=== PATIENT | female | born 1985 | race Caucasian/White ===

== ENCOUNTER 2021-04-18 17:41 | Emergency (ER) | payer OTHER ==
--- NOTE | 2021-04-18 20:02 | RAD REPORT ---
EXAM DESCRIPTION: RAD - Knee Left 3 View - 04/18/2021 7:43 pm CLINICAL HISTORY: PAIN COMPARISON: No comparisons FINDINGS: Lateral plate and screw fixation of the proximal tibia. No evidence of hardware complicati ons. No acute fractures are identified. No significant knee effusion. IMPRESSION: No acute osseus abnormality involving the left knee.
[2021-04-18 20:48] LABS: Basophils % 0.4 % (0-1.3); Hematocrit 42.3 % (36.0-45.0); Lymphocytes % 27.4 % (15.3-44.8); RBC Red Blood Cell Count 4.62 M/uL (3.86-4.86)
[2021-04-18 21:08] LABS: BUN Blood Urea Nitrogen 10 mg/dL (7-18); Bicarbonate 26 mmol/L (21-32); C-Reactive Protein 4.75 mg/L (<3.00); Glucose Level 88 mg/dL (74-106); Potassium 3.6 mmol/L (3.5-5.1); Sodium Level 142 mmol/L (136-145); Uric Acid 4.6 mg/dL (2.6-6.0)
--- NOTE | 2021-04-18 21:24 | EDPHYS ---
Physician Documentation [facility] Name: Yadira Dykes Age: 35 yrs Sex: Female : 1985 Arrival Date: 04/18/2021 Time: 17:41 Bed DIS3 Private MD: ED Physician Antione Rodriguez HPI: 04/18 20:20 This 35 yrs old Female presents to ER via Ambulatory with complaints of Knee cp Pain. 20:20 Onset: The symptoms/episode began/occurred 3 day(s) ago. cp 20:20 The patient presents with pain, that is acute. The complaints affect the left knee. cp Context: resulted from an unknown cause, the patient can fully bear weight, the patient is able to ambulate, with mild difficulty, Problem is a result from a previous injury: Yes. fracture requiring hardware placement 7 years ago. 20:20 Associated signs and symptoms: Pertinent positives: swelling, warmth, Pertinent cp negatives calf tenderness, fever, rash, chills, sweats. Treatment prior to arrival includes: no previous treatment. HEALTH INFORMATION TECH: 18:52 LMP N/A - Hysterectomy kg Historical: - Allergies: 18:50 Phenergan; kg - Home Meds: 18:50 hydrochlorothiazide Oral for edema [Active]; kg - PSHx: 18:50 Right ankle sx; Left total knee; Tonsillectomy; Total abdominal hysterectomy; Adenoid kg excision; - Immunization history:: Adult Immunizations up to date, Client reports having NOT received the Covid vaccine. - Social history:: Smoking status: Patient denies any tobacco usage or history of. Patient uses street drugs, marijuana. ROS: 20:25 MS/extremity: Positive for pain, swelling, tenderness, of the left knee, Negative for cp injury or acute deformity, decreased range of motion, paresthesias. 20:25 Eyes: Negative for injury, pain, redness, and discharge. cp 20:25 Constitutional: Negative for body aches, chills, fever, poor PO intake. 20:25 Cardiovascular: Negative for chest pain, edema, palpitations. 20:25 Respiratory: Negative for cough, shortness of breath, wheezing. 20:25 Skin: Negative for rash. Exam: 20:30 Constitutional: The patient appears in no acute distress, alert, awake, non-toxic, well cp developed, well nourished. 20:30 Head/Face: Normocephalic, atraumatic. cp 20:30 Eyes: Periorbital structures: appear normal, Conjunctiva: normal, no exudate, no injection, Sclera: no appreciated abnormality, Lids and lashes: appear normal, bilaterally. 20:30 ENT: External ear(s): are unremarkable, Nose: is normal, Mouth: Lips: moist, Oral mucosa: moist, Posterior pharynx: Airway: no evidence of obstruction, patent. 20:30 Chest/axilla: Inspection: normal. 20:30 Cardiovascular: Rate: normal, Edema: is not appreciated. 20:30 Respiratory: the patient does not display signs of respiratory distress, Respirations: normal, no use of accessory muscles, no retractions, labored breathing, is not present. 20:30 Musculoskeletal/extremity: Extremities: grossly normal except: noted in the anterior lateral left knee: pain, swelling, tenderness, There is no evidence of erythema, no joint line tenderness noted, ROM: full active range of motion, in the left knee, Perfusion: the extremity is normally perfused throughout, Sensation intact. DVT Exam: no pain, no swelling, negative Homans' sign noted on exam, no erythema. Vital Signs: 18:47 BP 138 / 96; Pulse 73; Resp 20; Temp 98.0(TE); Pulse Ox 100% on R/A; Weight 83.91 kg; kg Height 5 ft. 5 in. (165.10 cm) (R); Pain 4/10; 22:10 BP 136 / 85; Pulse 73; Pulse Ox 100% on R/A; dh4 18:47 Body Mass Index 30.79 (83.91 kg, 165.10 cm) kg MDM: 19:58 Patient medically screened. cp 21:00 Differential diagnosis: less likely septic joint, cellulitis, bursitis, gout. cp 21:21 Data reviewed: vital signs, nurses notes, lab test result(s), radiologic studies, plain cp films. Test interpretation: by ED physician or midlevel provider: plain radiologic studies. Counseling: I had a detailed discussion with the patient and/or guardian regarding: the historical points, exam findings, and any diagnostic results supporting the discharge/admit diagnosis, lab results, radiology results, the need for outpatient follow up, a orthopedic surgeon, to return to the emergency department if symptoms worsen or persist or if there are any questions or concerns that arise at home. 04/18 20:13 Order name: CBC with Diff; Complete Time: 21:09 cp 04/18 20:13 Order name: BMP; Complete Time: 21:09 cp 04/18 21:09 Interpretation: Normal except: CL 112. cp 04/18 18:53 Order name: XRAY Knee LEFT 3 view; Complete Time: 20:12 kg 04/18 20:13 Order name: CRP; Complete Time: 21:09 cp 04/18 21:09 Interpretation: Abnormal: C-REACTIVE PROT 4.75. cp 04/18 20:13 Order name: Sed Rate; Complete Time: 21:09 cp 04/18 21:13 Interpretation: Within normal limits: SED 8. cp 04/18 20:15 Order name: Uric Acid; Complete Time: 21:09 cp 04/18 21:13 Interpretation: Within normal limits: URIC 4.6. cp 04/18 20:13 Order name: IV; Complete Time: 20:50 cp 04/18 21:18 Order name: Dustin wrap-joint: left knee; Complete Time: 21:23 cp 04/18 21:18 Order name: Crutches; Complete Time: 21:23 cp Administered Medications: 21:15 Drug: NS 0.9% 1000 ml Route: IV; Rate: 1 bolus; Site: right antecubital; kg 22:06 Follow up: IV Status: Completed infusion; IV Intake: 1000ml bb 21:20 Drug: Ketorolac 15 mg Route: IVP; Site: right antecubital; kg 22:06 Follow up: Response: No adverse reaction bb Disposition: 04/19 07:08 Co-signature as Attending Physician, Antione Rodriguez MD. [email or web address] Disposition Summary: 04/18/21 21:24 Discharge Ordered Location: Home cp Problem: new cp Symptoms: have improved cp Condition: Stable cp Diagnosis - Pain in left knee cp Followup: cp - With: Timothy Castillo MD - When: 2 - 3 days - Reason: Recheck today's complaints Discharge Instructions: - Discharge Summary Sheet cp - Elastic Bandage and RICE Therapy cp - Acute Knee Pain, Adult cp - Form - Excuse from Work, School, or Physical Activity cp Forms: - Work release form bb - Medication Reconciliation Form cp - Thank You Letter cp - Antibiotic Education cp - Prescription Opioid Use cp Prescriptions: - Diclofenac Sodium 75 mg Oral tablet,delayed release (DR/EC) - take 1 tablet by ORAL route 2 times per day; 20 tablet; Refills: 0, Product cp Selection Permitted Signatures: Dispatcher [employer] EDRodney Amador PA PA cp Holmes, Maurice, MD MD [email or web address] Ritu Wilson RN RN kg Jaylyn Acosta RN bb Corrections: (The following items were deleted from the chart) 04/18 18:52 18:50 Allergies: No Known Allergies; kg kg
--- NOTE | 2021-04-18 21:24 | ER ---
Nurse's Notes [facility] Name: Yadira Dykes Age: 35 yrs Sex: Female : 1985 Arrival Date: 04/18/2021 Time: 17:41 Bed DIS3 Private MD: Diagnosis: Pain in left knee Presentation: 04/18 18:47 Chief complaint: Patient states: Left knee pain, swelling, and warm to touch starting kg 04/15. Pt stated she had a left total knee replacement 7 yrs ago but hasnt ever had any problems with it. Pt denies any fall or trauma to knee. Coronavirus screen: Client denies travel out of the [place] in the last 14 days. At this time, unable to obtain information related to travel outside the [place] Ebola Screen: Patient negative for fever greater than or equal to 101.5 degrees Fahrenheit, and additional compatible Ebola Virus Disease symptoms Patient denies exposure to infectious person. Patient denies travel to an Ebola-affected area in the 21 days before illness onset. Initial Sepsis Screen: Does the patient meet any 2 criteria? No. Patient's initial sepsis screen is negative. Does the patient have a suspected source of infection? No. Patient's initial sepsis screen is negative. Risk Assessment: Do you want to hurt yourself or someone else? Patient reports no desire to harm self or others. Onset of symptoms was April 15, 2021. 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 - Social history:: Smoking status: Patient denies any tobacco usage or history of. Patient uses street drugs, marijuana. Screenin:00 Abuse screen: Denies threats or abuse. Nutritional screening: No deficits noted. bb Tuberculosis screening: No symptoms or risk factors identified. Fall Risk None identified. Assessment: 20:00 General: Appears in no apparent distress. uncomfortable, Behavior is calm, cooperative. bb Pain: Complains of pain in left knee. Neuro: Level of Consciousness is awake, alert, obeys commands, Oriented to person, place, time, situation. Cardiovascular: Capillary refill < 3 seconds Patient's skin is warm and dry. Respiratory: Respiratory effort is even, unlabored, Respiratory pattern is regular. GI: No signs and/or symptoms were reported involving the gastrointestinal system. Derm: Skin is pink, warm \T\ dry. Musculoskeletal: Circulation, motion, and sensation intact. Reports pain in left knee. 22:24 Reassessment: Patient is alert, oriented x 3, equal unlabored respirations, skin bb warm/dry/pink. pt demonstrated good crutch walking technique states she has used them in the past. Pt verbalized understanding of and agrees to plan of care discharge instructions given pt assisted to exit via wheelchair by this RN. Vital Signs: 18:47 BP 138 / 96; Pulse 73; Resp 20; Temp 98.0(TE); Pulse Ox 100% on R/A; Weight 83.91 kg; kg Height 5 ft. 5 in. (165.10 cm) (R); Pain 4/10; 22:10 BP 136 / 85; Pulse 73; Pulse Ox 100% on R/A; dh4 18:47 Body Mass Index 30.79 (83.91 kg, 165.10 cm) kg ED Course: 17:41 Patient arrived in ED. am2 18:50 Triage completed. kg 18:52 Arm band placed on left wrist. kg 19:43 XRAY Knee LEFT 3 view In Process Unspecified. EDMS 19:58 Rodney Celeste PA is PHCP. cp 19:58 Antione Rodriguez MD is Attending Physician. cp 20:00 Patient has correct armband on for positive identification. bb 20:00 No provider procedures requiring assistance completed. bb 20:38 Initial lab(s) drawn, by me, sent to lab. Inserted saline lock: 20 gauge in right jp3 antecubital area, using aseptic technique. Blood collected. 21:23 Timothy Castillo MD is Referral Physician. cp 22:06 IV discontinued, intact, bleeding controlled, No redness/swelling at site. Pressure bb dressing applied. Administered Medications: 21:15 Drug: NS 0.9% 1000 ml Route: IV; Rate: 1 bolus; Site: right antecubital; kg 22:06 Follow up: IV Status: Completed infusion; IV Intake: 1000ml bb 21:20 Drug: Ketorolac 15 mg Route: IVP; Site: right antecubital; kg 22:06 Follow up: Response: No adverse reaction bb Intake: 22:06 IV: 1000ml; Total: 1000ml. bb Outcome: 21:24 Discharge ordered by MD. cp 22:27 Discharged to home via wheelchair, with crutches. bb 22:27 Condition: stable 22:27 Discharge instructions given to patient, Instructed on discharge instructions, follow up and referral plans. medication usage, Demonstrated understanding of instructions, follow-up care, medications, crutch walking, Prescriptions given X 1. 22:28 Patient left the ED. bb Signatures: Dispatcher [employer] EDMS Jaylyn Acosta, RN RN bb Rodney Celeste PA PA cp Moreno, Amanda am2 Karthikeyan Cardona 3 Donald Bernstein 4 Ritu Wilson RN RN kg Corrections: (The following items were deleted from the chart) 18:52 18:50 Allergies: No Known Allergies; kg kg
[2021-04-18] MEDS ORDERED: KETOROLAC 30 MG/ML INJ ONE (21:39)
[2021-04-18] MEDS ORDERED: NA CHLORIDE 0.9% 1,000 ML ONE (21:39)
[2021-04-18 22:55] VITALS: TEMP 98; O2SAT 100
[2021-04-18 22:56] VITALS: BP 136/85
== END 2021-04-18 22:28 | disposition home or self-care (01) ==
LOC: ER 17:41
DX: M25.562 Pain in left knee (principal); Z88.8 Allergy status to other drugs, medicaments and biological substances
CPT/HCPCS: 96361; 85025; 80048; 36415; 84550; 85652; 86140; 73562; 96374; 99284; J7030

== ENCOUNTER 2021-05-31 08:12 | Emergency (ER) | payer OTHER ==
[2021-05-31] MEDS ORDERED: MORPHINE 4 MG/ML SYR ONE ×2 (09:06→09:19)
[2021-05-31] MEDS ORDERED: ONDANSETRON 4 MG/2 ML VIAL ONE ×2 (09:06→09:08)
--- NOTE | 2021-05-31 09:59 | RAD REPORT ---
EXAM DESCRIPTION: RAD - Ankle Left 3 View - 05/31/2021 9:44 am CLINICAL HISTORY: DEFORMITY, ankle trauma COMPARISON: No comparisons FINDINGS: A punctate 6-7 mm avulsed fracture fragment is present from the tip of the fibula. There i s significant lateral soft tissue swelling. Distal tibia is intact. No joint effusion seen. No joint space narrowing. No soft tissue abnormality. No plantar spur. IMPRESSION: Small acute fracture present at the tip of the fibula with significant adjacent soft tis mei swelling.
--- NOTE | 2021-05-31 10:29 | EDPHYS ---
Physician Documentation [facility] Name: Yadira Dykes Age: 35 yrs Sex: Female : 1985 Arrival Date: 05/31/2021 Time: 08:12 Bed 5 Private MD: ED Physician Rodney Jackson HPI: 05/31 08:40 This 35 yrs old Female presents to ER via Wheelchair with complaints of Ankle jmm Injury. 08:40 The patient presents with an injury, pain. Onset: The symptoms/episode began/occurred jmm acutely, just prior to arrival. Associated signs and symptoms: Pertinent positives: swelling, Pertinent negatives: nausea. Modifying factors: The symptoms are alleviated by nothing, the symptoms are aggravated by weight bearing, movement. The patient has not experienced similar symptoms in the past. This is a 35 year old with no chronic medical conditions that present to the ED with complaints of left ankle pain, patient stepped in a hole and states she felt a crunch. . 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 - Social history:: Smoking status: Patient denies any tobacco usage or history of. ROS: 08:40 Constitutional: Negative for fever, chills, and weight loss, Cardiovascular: Negative jmm for chest pain, palpitations, and edema, Respiratory: Negative for shortness of breath, cough, wheezing, and pleuritic chest pain. 08:40 MS/extremity: Positive for deformity, pain. 08:40 All other systems are negative. Exam: 08:40 Constitutional: This is a well developed, well nourished patient who is awake, alert, jmm and in no acute distress. Head/Face: atraumatic. Eyes: EOMI, no conjunctival erythema appreciated ENT: Moist Mucus Membranes Neck: Trachea midline, Supple Chest/axilla: Normal chest wall appearance and motion. Cardiovascular: Regular rate and rhythm. No edema appreciated Respiratory: Normal respirations, no respiratory distress appreciated Abdomen/GI: Non distended, soft Back: Normal ROM Skin: General appearance color normal 08:40 Musculoskeletal/extremity: Pain noted to the left ankle with a deformity, compartments are soft, full dorsalis pulse appreciated, sensation intact, neurovascular intact. 08:40 Skin: Appearance: Color: normal in color. 08:40 Neuro: Motor: is normal. 08:40 Psych: Behavior/mood is pleasant, cooperative. Vital Signs: 08:21 BP 132 / 87; Pulse 81; Resp 17; Temp 97.9; Pulse Ox 100% ; Weight 81.65 kg; Height 5 jl7 ft. 6 in. (167.64 cm); Pain 8/10; 08:50 BP 132 / 92; Pulse 85; Resp 14; Pulse Ox 97% on R/A; Pain 5/10; tw5 09:54 BP 124 / 84; Pulse 81; Resp 14; Pulse Ox 99% on R/A; Pain 2/10; tw5 11:29 BP 116 / 79; Pulse 84; Resp 14; Temp 98.1; Pulse Ox 97% on R/A; Pain 2/10; tw5 08:21 Body Mass Index 29.05 (81.65 kg, 167.64 cm) jl7 Procedures: 10:26 Splinting: Splint applied to left leg using Orthoglass splint, applied by nurse. audrey Examined by me, post splint application: neurovascular intact, 2+ distal pulses palpable, brisk capillary refill noted, Patient tolerated well. MDM: 08:27 Patient medically screened. [facility] 10:26 Data reviewed: vital signs, nurses notes, radiologic studies. Counseling: I had a audrey detailed discussion with the patient and/or guardian regarding: the historical points, exam findings, and any diagnostic results supporting the discharge/admit diagnosis, radiology results, the need for outpatient follow up, to return to the emergency department if symptoms worsen or persist or if there are any questions or concerns that arise at home. ED course: X-ray revealed a distal patient encouraged to follow-up with orthopedics for further evaluation bear weight until cleared by orthopedics. Patient understood and agrees plan of care.. 05/31 09:01 Order name: Ankle Left 3 View XRAY; Complete Time: 10:08 jmcj 05/31 08:27 Order name: Saline Lock; Complete Time: 08:46 [facility] 05/31 09:53 Order name: Posterior Orthoglass Ankle Splint: with stirrup; Complete Time: 10:28 [facility] Administered Medications: 08:48 Drug: morphine 4 mg Route: IVP; Site: right antecubital; tw5 09:55 Follow up: Response: No adverse reaction; Pain is decreased; RASS: Alert and Calm (0) tw5 08:58 Drug: Zofran (Ondansetron) 4 mg Route: IVP; Site: right antecubital; tw5 09:55 Follow up: Response: No adverse reaction tw5 08:58 Not Given (wasted down patients arm ): morphine 4 mg IVP once; RASS on ADMIN: Combtv4, tw5 Very Agttd3, Agttd2, Rstlss1, AlertClm0, Drwsy-1, Lt Sdtn-2, Mod Sdtn-3, Dp Sdtn-4, UnArsble-5 11:27 Drug: fentaNYL (PF) 25 mcg Route: IVP; Site: right antecubital; tw5 11:29 Follow up: Response: No adverse reaction; Pain is decreased; RASS: Alert and Calm (0) tw5 Disposition: 06/01 07:52 Co-signature as Attending Physician, Rodney Jackson MD I agree with the assessment and desi plan of care. Disposition Summary: 05/31/21 10:28 Discharge Ordered Location: Home [facility] Condition: Stable [facility] Diagnosis - Distal Fibular Fracture [facility] Followup: [facility] - With: Private Physician - When: 2 - 3 days - Reason: Recheck today's complaints, Continuance of care, Re-evaluation by your physician Followup: [facility] - With: Jarrod Myers MD - When: 2 - 3 days - Reason: Recheck today's complaints, Continuance of care, Re-evaluation by your physician Discharge Instructions: - Discharge Summary Sheet [facility] - Ankle Fracture [facility] Forms: - Medication Reconciliation Form [facility] - Thank You Letter [facility] - Antibiotic Education [facility] - Prescription Opioid Use [facility] Prescriptions: - Ibuprofen 800 mg Oral Tablet - take 1 tablet by ORAL route every 8 hours As needed take with food; 30 tablet; [facility] Refills: 0, Product Selection Permitted Signatures: Dispatcher [employer] EDRodney Prather MD MD cha Mickail, Joel, PA PA jmm Leal, Jahala, VANI RN [email or web address] Cassie [email or web address] Corrections: (The following items were deleted from the chart) 05/31 11:11 11:00 Social Service Consult ordered. EDMS EDMS
--- NOTE | 2021-05-31 10:29 | ER ---
Nurse's Notes [facility] Name: Yadira Dykes Age: 35 yrs Sex: Female : 1985 Arrival Date: 05/31/2021 Time: 08:12 Bed 5 Private MD: Diagnosis: Distal Fibular Fracture Presentation: 05/31 08:21 Chief complaint: Patient states: Stepped in a hole with left foot this morning, heard jl7 crunching, swelling noted to left ankle. Coronavirus screen: At this time, the client does not indicate any symptoms associated with coronavirus-19. Ebola Screen: No symptoms or risks identified at this time. Initial Sepsis Screen: Does the patient meet any 2 criteria? No. Patient's initial sepsis screen is negative. Does the patient have a suspected source of infection? No. Patient's initial sepsis screen is negative. Risk Assessment: Do you want to hurt yourself or someone else? Patient reports no desire to harm self or others. Onset of symptoms was May 31, 2021. 08:21 Method Of Arrival: Wheelchair jl7 08:21 Acuity: CONNIE 4 jl7 Triage Assessment: 08:22 General: Appears in no apparent distress. uncomfortable, Behavior is calm, cooperative, jl7 appropriate for age, crying. Pain: Complains of pain in left lateral ankle Pain currently is 8 out of 10 on a pain scale. Musculoskeletal: Swelling present in left lateral ankle. 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 - Social history:: Smoking status: Patient denies any tobacco usage or history of. Screenin:50 Abuse screen: Denies threats or abuse. Denies injuries from another. Nutritional tw5 screening: No deficits noted. Tuberculosis screening: No symptoms or risk factors identified. Fall Risk Fall in past 12 months (25 points). IV access (20 points). Assessment: 08:50 General: Appears uncomfortable, Behavior is crying, Reports " I was walking my daughter tw5 to school when my foot went into a hole and I twisted my ankle.". Pain: Pain currently is 6 out of 10 on a pain scale. 08:50 Cardiovascular: No deficits noted. Cardiovascular: Pulses are 2+ in left dorsalis pedis tw5 artery. Respiratory: No deficits noted. Musculoskeletal: Circulation, motion, and sensation intact. Capillary refill < 3 seconds, is brisk, in left in bilateral toes. Swelling present in left lateral ankle. 09:55 Reassessment: Patient states feeling better. Patient states symptoms have improved. tw5 General: Appears uncomfortable, Behavior is calm, crying. 11:37 Reassessment: Patient states feeling better. Patient states symptoms have improved. tw5 Vital Signs: 08:21 BP 132 / 87; Pulse 81; Resp 17; Temp 97.9; Pulse Ox 100% ; Weight 81.65 kg; Height 5 jl7 ft. 6 in. (167.64 cm); Pain 8/10; 08:50 BP 132 / 92; Pulse 85; Resp 14; Pulse Ox 97% on R/A; Pain 5/10; tw5 09:54 BP 124 / 84; Pulse 81; Resp 14; Pulse Ox 99% on R/A; Pain 2/10; tw5 11:29 BP 116 / 79; Pulse 84; Resp 14; Temp 98.1; Pulse Ox 97% on R/A; Pain 2/10; tw5 08:21 Body Mass Index 29.05 (81.65 kg, 167.64 cm) jl7 ED Course: 08:12 Patient arrived in ED. am2 08:13 Anthony Kellogg PA is PHCP. jmm 08:14 Rodney Jackson MD is Attending Physician. jmm 08:22 Triage completed. jl7 08:22 Arm band placed on right wrist. jl7 08:36 Cassie Parker is Primary Nurse. tw5 08:46 Inserted saline lock: 20 gauge in right antecubital area, using aseptic technique. cs9 08:50 Resting quietly. Appears tearful. Awaiting for x-ray. tw5 08:50 Patient has correct armband on for positive identification. Bed in low position. Call tw5 light in reach. Side rails up X 1. Pulse ox on. NIBP on. Door closed. Noise minimized. Lights dimmed. Ice pack to injury. Verbal reassurance given. 08:50 No provider procedures requiring assistance completed. tw5 09:44 Ankle Left 3 View XRAY In Process Unspecified. EDMS 10:29 Crutch training done. Orthoglass splint: Posterior short lleg splint applied on left em1 leg. stirrup splint applied on left leg. 10:33 Jarrod Myers MD is Referral Physician. [facility] 11:37 IV discontinued, intact, bleeding controlled, No redness/swelling at site. Pressure tw5 dressing applied. Administered Medications: 08:48 Drug: morphine 4 mg Route: IVP; Site: right antecubital; tw5 09:55 Follow up: Response: No adverse reaction; Pain is decreased; RASS: Alert and Calm (0) tw5 08:58 Drug: Zofran (Ondansetron) 4 mg Route: IVP; Site: right antecubital; tw5 09:55 Follow up: Response: No adverse reaction tw5 08:58 Not Given (wasted down patients arm ): morphine 4 mg IVP once; RASS on ADMIN: Combtv4, tw5 Very Agttd3, Agttd2, Rstlss1, AlertClm0, Drwsy-1, Lt Sdtn-2, Mod Sdtn-3, Dp Sdtn-4, UnArsble-5 11:27 Drug: fentaNYL (PF) 25 mcg Route: IVP; Site: right antecubital; tw5 11:29 Follow up: Response: No adverse reaction; Pain is decreased; RASS: Alert and Calm (0) tw5 Outcome: 10:28 Discharge ordered by . cj 11:37 Discharged to home Via Bus tw5 11:37 Condition: good 11:37 Discharge instructions given to patient, Instructed on discharge instructions, follow up and referral plans. medication usage, crutch walking, Demonstrated understanding of instructions, medications, crutch walking, Prescriptions given X 1. 11:39 Patient left the ED. tw5 Signatures: Dispatcher [employer] EDMS Anthony Kellogg PA PA jmm Martinez, Eric em1 Thu Kent RN RN aa5 Vianney Sarah RN RN jl7 Elyse Lin am2 Cassie Parker tw5 Marilee Mai cs9 Corrections: (The following items were deleted from the chart) 08:29 Thu Kent RN is Primary Nurse. aa5 08:36 Primary Nurse role handed off by Thu Kent, VANI tw5 :56 09:54 BP 124 / 84; Pulse 81bpm; Resp 14bpm; Pulse Ox 99% RA; 5
[2021-05-31] MEDS ORDERED: FENTANYL CITR 100 MCG/2 ML ONE (11:43)
[2021-05-31 12:04] VITALS: BP 116/79; TEMP 98.1; O2SAT 97
== END 2021-05-31 11:39 | disposition home or self-care (01) ==
LOC: ER 08:12
PROC: 2W3RX1Z Immobilization of Left Lower Leg using Splint (ICD-10-PCS; principal; 2021-05-31)
DX: S82.832A Other fracture of upper and lower end of left fibula, initial encounter for closed fracture (principal); X58.XXXA Exposure to other specified factors, initial encounter; Y93.01 Activity, walking, marching and hiking; Z88.8 Allergy status to other drugs, medicaments and biological substances
CPT/HCPCS: 73610; 96375; 96374; 99284; 29515; J3010; J2405 ×2

== ENCOUNTER 2021-06-06 21:21 | Emergency (ER) | payer OTHER ==
[2021-06-06] MEDS ORDERED: HYDROCODONE/APAP 10/325 TAB ONE (22:24)
--- NOTE | 2021-06-06 23:24 | ER ---
Nurse's Notes [facility] Name: Yadira Dykes Age: 35 yrs Sex: Female : 1985 Arrival Date: 06/06/2021 Time: 21:23 Bed 14 Private MD: Diagnosis: Avulsion fracture left fibula;Cellulitis of left lower limb Presentation: 06/06 21:34 Chief complaint: Patient states: leg pain. Coronavirus screen: Vaccine status: Patient ss reports being unvaccinated. The client reports previous COVID testing was negative. Date of collection: October 2020. Ebola Screen: Patient negative for fever greater than or equal to 101.5 degrees Fahrenheit, and additional compatible Ebola Virus Disease symptoms Patient denies exposure to infectious person. Patient denies travel to an Ebola-affected area in the 21 days before illness onset. Initial Sepsis Screen: Does the patient meet any 2 criteria? No. Patient's initial sepsis screen is negative. Does the patient have a suspected source of infection? No. Patient's initial sepsis screen is negative. Risk Assessment: Do you want to hurt yourself or someone else? Patient reports no desire to harm self or others. Onset of symptoms was May 30, 2021. 21:34 Method Of Arrival: Wheelchair ss 21:34 Acuity: CONNIE 3 ss Triage Assessment: 22:00 General: Appears in no apparent distress. uncomfortable, well groomed, well developed, bs2 well nourished, Behavior is calm, cooperative, appropriate for age. Injury Description: Avulsion sustained to left leg. Historical: - Allergies: 21:36 Phenergan; ss - Home Meds: 21:36 Hydrochlorothiazide Oral for EDEMA [Active]; ss - PMHx: 21:36 None; ss - PSHx: 21:36 Total abdominal hysterectomy; Tonsillectomy; right ankle sx; Left total knee; Adenoid ss excision; - Immunization history:: Adult Immunizations up to date, Client reports having NOT received the Covid vaccine. - Social history:: Smoking status: Patient denies any tobacco usage or history of. Screenin:00 Abuse screen: Denies threats or abuse. Denies injuries from another. Nutritional bs2 screening: No deficits noted. Tuberculosis screening: No symptoms or risk factors identified. Fall Risk None identified. Assessment: 22:00 General: Appears in no apparent distress. uncomfortable, well groomed, well developed, bs2 well nourished, Behavior is calm, cooperative, appropriate for age. Pain: Complains of pain in left lateral ankle and left leg Pain currently is 8 out of 10 on a pain scale. Pain began 2-3 days ago. Musculoskeletal: Reports pain in left lateral ankle and left leg pt was in ER a week ago and placed in orthoglass splint, pt has been unable to follow up with orthopedics and pain is getting worse. LT side of ankle is red and swollen, foot is swollen . Vital Signs: 21:34 BP 135 / 103; Pulse 85; Resp 18; Temp 98.0; Pulse Ox 100% on R/A; Weight 83.91 kg; ss Height 5 ft. 6 in. (167.64 cm); Pain 10; 06/07 00:00 BP 125 / 92; Pulse 85; Resp 15; Temp 98.6(O); Pulse Ox 100% on R/A; Pain 5/10; bs2 06/06 21:34 Body Mass Index 29.86 (83.91 kg, 167.64 cm) ED Course: 06/06 21:23 Patient arrived in ED. bp1 21:30 Luiza Jorgensen FNP-C is PHCP. kb 21:30 Rodney Jackson MD is Attending Physician. kb 21:36 Triage completed. ss 21:56 Emily Chapman, RN is Primary Nurse. bs2 22:00 Patient has correct armband on for positive identification. Bed in low position. Call bs2 light in reach. Side rails up X 1. Warm blanket given. 06/07 00:00 Splint/sling/ice applied as appropriate. bs2 00:00 Assist provider with fracture care of left leg Obvious deformity is not noted. bs2 Circulation, motor and sensation is intact. Immobilized with replaced old saddle splint with short posterior splint, no reduction required. . Post immobilization, circulation, motor and sensation remain intact. Patient tolerated well. Patient did not have IV access during this emergency room visit. Administered Medications: 06/06 22:05 Drug: [place] (HYDROcodone-acetaminophen) 10 mg-325 mg 1 tabs Route: PO; bs2 23:42 Follow up: Response: No adverse reaction bs2 23:58 Drug: Ketorolac 30 mg Route: IM; Site: left deltoid; bs2 06/07 00:51 Follow up: Response: No adverse reaction bs2 Outcome: 06/06 23:23 Discharge ordered by . biju 06/07 00:25 Discharge instructions given to patient, Instructed on discharge instructions, follow bs2 up and referral plans. medication usage, Demonstrated understanding of instructions, follow-up care, medications, splint care, Prescriptions given X 1. 00:56 Discharged to home via wheelchair, with family. bs2 00:56 Condition: improved 00:57 Patient left the ED. bs2 Signatures: Luiza Jorgensen, LAUREENC JJ-Betty Felix RN RN Chaya Cuadra Bridget, RN RN bs2 Corrections: (The following items were deleted from the chart) 06/06 23:41 20:05 Melrude (HYDROcodone-acetaminophen) 10 mg-325 mg 1 tabs PO bs2 bs2
--- NOTE | 2021-06-06 23:24 | EDPHYS ---
Physician Documentation [facility] Name: Yadira Dykes Age: 35 yrs Sex: Female : 1985 Arrival Date: 06/06/2021 Time: 21:23 Bed 14 Private MD: JARRED Physician Rodney Jackson HPI: 06/07 00:16 This 35 yrs old Female presents to ER via Wheelchair with complaints of Leg kb Injury, Ankle Injury. 00:16 The patient presents with an injury, pain, swelling, tenderness. The complaints affect kb the left lateral ankle. Context: the patient is not able to bear weight, using wheelchair. Onset: The symptoms/episode began/occurred last week. Modifying factors: The symptoms are alleviated by nothing. the symptoms are aggravated by movement, weight bearing. Associated signs and symptoms: Pertinent positives: swelling. Treatment prior to arrival includes: splinting the affected extremity. Severity of symptoms: At their worst the symptoms were moderate, in the emergency department the symptoms are unchanged. The patient has not experienced similar symptoms in the past. The patient has been recently seen at the [facility] Emergency Department. Pt reports she broke her fibula last week. States she hasn't found an ortho to get into yet and is having pain to ankle. States she took off the splint and noticed redness and warmth as well so she is concerned about infection. Historical: - Allergies: 06/06 21:36 Phenergan; ss - Home Meds: 21:36 Hydrochlorothiazide Oral for EDEMA [Active]; ss - PMHx: 21:36 None; ss - PSHx: 21:36 Total abdominal hysterectomy; Tonsillectomy; right ankle sx; Left total knee; Adenoid ss excision; - Immunization history:: Adult Immunizations up to date, Client reports having NOT received the Covid vaccine. - Social history:: Smoking status: Patient denies any tobacco usage or history of. ROS: 06/07 00:09 Constitutional: Negative for fever, chills, and weight loss. kb MS/extremity: Positive for erythema, pain, of the left leg. Skin: Positive for erythema, swelling, of the left lateral ankle. Exam: 00:15 Constitutional: This is a well developed, well nourished patient who is awake, alert, kb and in no acute distress. Head/Face: Normocephalic, atraumatic. ENT: Moist Mucous membranes Respiratory: Respirations even and unlabored. No increased work of breathing, no retractions or nasal flaring. Neuro: Awake and alert, GCS 15, oriented to person, place, time, and situation. Moves all extremities. Normal gait. Psych: Awake, alert, with orientation to person, place and time. Behavior, mood, and affect are within normal limits. 00:15 Musculoskeletal/extremity: Extremities: grossly normal except: noted in the left lateral ankle: pain, swelling, tenderness, ROM: intact in all extremities, Circulation is intact in all extremities. Sensation intact. Weight bearing: is unable to bear weight. 00:15 Skin: cellulitis, that is mild, on the left lateral ankle. Vital Signs: 06/06 21:34 BP 135 / 103; Pulse 85; Resp 18; Temp 98.0; Pulse Ox 100% on R/A; Weight 83.91 kg; ss Height 5 ft. 6 in. (167.64 cm); Pain 10/10; 06/07 00:00 BP 125 / 92; Pulse 85; Resp 15; Temp 98.6(O); Pulse Ox 100% on R/A; Pain 5/10; bs2 06/06 21:34 Body Mass Index 29.86 (83.91 kg, 167.64 cm) ss Procedures: 00:07 Splinting: Splint applied to left leg using Orthoglass splint, applied by nurse. kb Examined by me, post splint application: neurovascular intact, 2+ distal pulses palpable, Patient tolerated well. MDM: 06/06 21:35 Patient medically screened. kb 06/07 00:06 Data reviewed: vital signs, nurses notes. Data interpreted: Pulse oximetry: on room air kb is 100 %. Interpretation: normal. Counseling: I had a detailed discussion with the patient and/or guardian regarding: the historical points, exam findings, and any diagnostic results supporting the discharge/admit diagnosis, the need for outpatient follow up, a orthopedic surgeon, to return to the emergency department if symptoms worsen or persist or if there are any questions or concerns that arise at home. 00:08 ED course: Pt reports her leg feels much better in the new splint. kb 06/06 22:10 Order name: Short Leg Splint; Complete Time: 00:51 kb Administered Medications: 06/06 22:05 Drug: [place] (HYDROcodone-acetaminophen) 10 mg-325 mg 1 tabs Route: PO; bs2 23:42 Follow up: Response: No adverse reaction bs2 23:58 Drug: Ketorolac 30 mg Route: IM; Site: left deltoid; bs2 06/07 00:51 Follow up: Response: No adverse reaction bs2 Disposition: 07:55 Co-signature as Attending Physician, Rodney Jackson MD I agree with the assessment and desi plan of care. Disposition Summary: 06/06/21 23:23 Discharge Ordered Location: Home kb Condition: Stable kb Diagnosis - Avulsion fracture left fibula kb - Cellulitis of left lower limb kb Followup: kb - With: Emergency Department - When: As needed - Reason: Worsening of condition Followup: kb - With: Private Physician - When: 2 - 3 days - Reason: Recheck today's complaints, Continuance of care, Re-evaluation by your physician Discharge Instructions: - Discharge Summary Sheet kb - Cellulitis, Adult, [id number] kb Forms: - Medication Reconciliation Form kb - Thank You Letter kb - Antibiotic Education kb - Prescription Opioid Use kb Prescriptions: - Bactrim DS 800-160 mg Oral Tablet - take 1 tablet by ORAL route every 12 hours for 7 days; 14 tablet; Refills: 0, kb Product Selection Permitted Signatures: Luiza Jorgensen FNP-C FNP-Rodney Wilson MD MD cha Smirch, Shelby, RN Emily Vann RN RN bs2
[2021-06-07] MEDS ORDERED: KETOROLAC 30 MG/ML INJ ONE (00:12)
[2021-06-07 01:06] VITALS: O2SAT 100
[2021-06-07 01:07] VITALS: BP 125/92; TEMP 98.6
== END 2021-06-07 00:57 | disposition home or self-care (01) ==
LOC: ER 21:21
PROC: 2W3RX1Z Immobilization of Left Lower Leg using Splint (ICD-10-PCS; principal; 2021-06-07)
DX: S82.402D Unspecified fracture of shaft of left fibula, subsequent encounter for closed fracture with routine healing (principal); L03.116 Cellulitis of left lower limb
CPT/HCPCS: 96372; 99284

== ENCOUNTER 2022-03-31 12:31 | Emergency (ER) | payer OTHER ==
--- OUTSIDE RECORDS SUMMARY | 2022-03-31 12:34 | XMS REPORT | Continuity of Care Document ---
:1985 Author Organization [facility] t Address [address] [place] [address] Care Team Providers Name Role Phone RADHA NOVA Primary Care Physician Unavailable Radha Nova Attending Clinician Unavailable Thais Caruso MD Attending Clinician THAIS CARUSO Attending Clinician Unavailable Doctor Unassigned, [place] Attending Clinician Unavailable THAIS CARUSO Admitting Clinician Unavailable Payers Payer Name Policy Type Policy Number Effective Date Expiration Date S ource Problems Condition Condition Condition Status Onset Resolution Last Treating Co mments Source Name Details Category Date Date Treatment Clinician Date No known No known Disease Unive rs active active ity of problems problems [place] [facility] St[facility] Allergies, Adverse Reactions, Alerts Allergy Allergy Status Severity Reaction(s) Onset Inactive Treating Comm ents Source Name Type Date Date Clinician Prometha Propensi Active Hives Univer s zine ty to 09-28 ity of adverse 00:00: [place] reaction 00 Medical s Branch PROMETHA DRUG Active Hives Univers ZINE INGREDI 09-28 ity of 00:00: [place] 00 Medical Branch Social History Social Habit Start Date Stop Date Quantity Comments Source History SDOH University o f Alcohol Std [place] [facility] Drinks Branch History SDOH University o f Alcohol Binge [place] [facility] al Branch Exposure to Not sure University of SARS-CoV-2 [place] [facility] (event) Branch Tobacco use and 2021-09-28 2021-09-28 Never used Universit y of exposure 00:00:00 00:00:00 [facility] Alcohol intake 2021-09-28 2021-09-28 Current drinker of Un iversity of 00:00:00 00:00:00 alcohol (finding) [facility] History SDOH 2021-09-28 2021-09-28 1 University o f Alcohol Frequency 00:00:00 00:00:00 [facility] Alcohol Comment 2021-09-28 2021-09-28 occasionally Univers ity of 00:00:00 00:00:00 [facility] Sex Ass[birth year] At [birth year] Universit y of 00:00:00 00:00:00 [facility] Smoking Status Start Date Stop Date Source Never smoker [facility] Medications Ordered Filled Start Stop Current Ordering Indication Dosage Frequency Signature Comments Components Source Medication Medication Date Date Medication? Clinician (SIG) Name Name gadoteridol 2021- No [id number] .2mL/kg 0.2 mL/kg, Univers (PROHANCE-2 10-09 Intravenou i ty of 0 mL) 18:30: 18:15 s, ONCE, 1 [place] injection 00 :00 dose, On Medica l 0.2 mL/kg Mon Branch 10/09/21 at 1230, Routine diphenhydra Yes Take by Uni vers mine HCl 2-03 mouth. ity of (BENADRYL 11:31: [place] ALLERGY 59 Medical ORAL) Branch ibuprofen Yes 200mg Take 200 Uni vers (IBU-200) 2-03 mg by ity of 200 mg 11:31: mouth [place] tablet 59 every 6 Medical (six) Branch hours as needed. fluticasone Yes Use in Univ ers propionate 2-03 each ity of 50 11:31: nostril [place] mcg/actuati 59 daily. Medica l on nasal Branch spray diphenhydra Yes Take by Uni vers mine HCl 2-03 mouth. ity of (BENADRYL 11:31: [place] ALLERGY 59 Medical ORAL) Branch ibuprofen Yes 200mg Take 200 Uni vers (IBU-200) 2-03 mg by ity of 200 mg 11:31: mouth [place] tablet 59 every 6 Medical (six) Branch hours as needed. fluticasone 0 Yes Use in [facility] ers propionate 2-03 each ity of 50 11:31: nostril [place] mcg/actuati 59 daily. Medica l on nasal Branch spray diphenhydra 0 Yes Take by Uni vers mine HCl 2-03 mouth. ity of (BENADRYL 11:31: [place] ALLERGY 59 Medical ORAL) Branch ibuprofen Yes 200mg Take 200 Uni vers (IBU-200) 2-03 mg by ity of 200 mg 11:31: mouth [place] tablet 59 every 6 Medical (six) Branch hours as needed. fluticasone Yes Use in [facility] ers propionate 2-03 each ity of 50 11:31: nostril [place] mcg/actuati 59 daily. Medica l on nasal Branch spray diphenhydra Yes Take by Uni vers mine HCl 2-03 mouth. ity of (BENADRYL 11:31: [place] ALLERGY 59 Medical ORAL) Branch ibuprofen Yes 200mg Take 200 Uni vers (IBU-200) 2-03 mg by ity of 200 mg 11:31: mouth [place] tablet 59 every 6 Medical (six) Branch hours as needed. fluticasone 0 Yes Use in [facility] ers propionate 2-03 each ity of 50 11:31: nostril [place] mcg/actuati 59 daily. Medica l on nasal Branch spray diphenhydra Yes Take by Uni vers mine HCl 2-03 mouth. ity of (BENADRYL 11:31: [place] ALLERGY 59 Medical ORAL) Branch ibuprofen Yes 200mg Take 200 Uni vers (IBU-200) 2-03 mg by ity of 200 mg 11:31: mouth [place] tablet 59 every 6 Medical (six) Branch hours as needed. fluticasone 0 Yes Use in [facility] ers propionate 2-03 each ity of 50 11:31: nostril [place] mcg/actuati 59 daily. Medica l on nasal Branch spray amitriptyli Yes [id number] 25mg Take 1 Univers ne 25 mg 2-03 tablet by ity of tablet 00:00: mouth at [place] 00 bedtime. Medical Branch sumatriptan Yes [id number] 100mg Take 1 Univers 100 mg 2-03 tablet by ity of tablet 00:00: mouth as [place] 00 needed for Medical Migraine. Branch amitriptyli 2021-0 Yes [id number] 25mg Take 1 Univers ne 25 mg 2-03 tablet by ity of tablet 00:00: mouth at [place] [address] bedtime. Medical Branch sumatriptan 2021-0 Yes [id number] 100mg Take 1 Univers 100 mg 2-03 tablet by ity of tablet 00:00: mouth as [place] 00 needed for Medical Migraine. Branch amitriptyli 2021-0 Yes [id number] 25mg Take 1 Univers ne 25 mg 2-03 tablet by ity of tablet 00:00: mouth at [place] [address] bedtime. Medical Branch sumatriptan 2021-0 Yes [id number] 100mg Take 1 Univers 100 mg 2-03 tablet by ity of tablet 00:00: mouth as [place] 00 needed for Medical Migraine. Branch amitriptyli 0 Yes [id number] 25mg Take 1 Univers ne 25 mg 2-03 tablet by ity of tablet 00:00: mouth at [place] [address] bedtime. Medical Branch sumatriptan 0 Yes [id number] 100mg Take 1 Univers 100 mg 2-03 tablet by ity of tablet 00:00: mouth as [place] 00 needed for Medical Migraine. Branch amitriptyli 0 Yes [id number] 25mg Take 1 Univers ne 25 mg 2-03 tablet by ity of tablet 00:00: mouth at [place] [address] bedtime. Medical Branch sumatriptan 0 Yes [id number] 100mg Take 1 Univers 100 mg 2-03 tablet by ity of tablet 00:00: mouth as [place] 00 needed for Medical Migraine. Branch Vital Signs Vital Name Observation Time Observation Value Comments Source Systolic blood 2021-09-28 17:13:00 134 mm[Hg] Univer sity of pressure [facility] Diastolic blood 2021-09-28 17:13:00 90 mm[Hg] Unive rsity of pressure [facility] Heart rate 2021-09-28 17:13:00 98 /min [facility] Body temperature 2021-09-28 17:13:00 37 [facility] height 2021-09-28 17:13:00 167.6 cm [facility] Body weight 2021-09-28 17:13:00 95.255 kg [facility] BMI 2021-09-28 17:13:00 33.89 kg/m2 [facility] Oxygen saturation in 2021-09-28 17:13:00 96 /min [facility] blood by [facility] Pulse oximetry Branch Procedures Procedure Date / Time Performing Clinician Source Performed MR BRAIN W WO CONTRAST 2021-10-09 18:21:43 [facility] ASSIGNMENT OF BENEFITS 2021-10-09 16:24:12 Doctor Unassigned, No [facility] PATIENT QUESTIONNAIRE 2021-09-29 06:01:00 Doctor Unassigned, No [facility] Encounters Start End Encounter Admission Attending Care Care Encounter Source Date/Time Date/Time Type Type Clinicians Facility Department ID 2021-12-25 Outpatient Nova, [facility] [id number] Common 15:43:02 [facility] 2021-10-23 Outpatient Nova, STLMLC STLC [id number] Common 11:46:02 [facility] 2021-10-21 Outpatient Nova, STLMLC STLC [id number] Common 07:35:00 [facility] 2021-09-29 Outpatient Nova, STLMLC STLC [id number] Common 09:13:00 [facility] 2021-09-27 Outpatient Nova, STLMLC STLC [id number] Common 08:03:03 [facility] 2021-09-20 Outpatient Nova, STLMLC STLC [id number] Common 14:26:11 [facility] 2021 2021 Telephone RAMSEY Caruso [id number] Univers 00:00:00 00:00:00 Thais Mcgraw SPECIALTY [id number] [facility] [id number] [facility] AT [phone] Dc ruddy ALEJANDRA 092 Branch [facility] 2021-11-27 2021-11-27 [facility] [id number] Univers 09:30:00 09:30:[id number] [facility] 2021-11-27 2021-11-27 [facility] [id number] Univers 09:30:00 09:30:00 RUIQING [facility] 2021-11-13 2021-11-13 ambulatory STLMLC STLMLC [id number] Common 00:00:00 00:00:00 [facility] 2021-11-07 2021-11-07 ambulatory STLMLC STLMLC [id number] Common 00:00:00 00:00:00 [facility] 2021-10-24 2021-10-24 ambulatory STLMLC STLMLC [id number] Common 00:00:00 00:00:00 [facility] 2021-10-09 2021-10-09 [facility] [id number] Univers 10:28:15 23:59:00 [facility] 2021-10-09 2021-10-09 [facility] [id number] Univers 10:28:15 23:59:00 Encounter Ruiqing Lucien MORENO [id number] ity [facility] [id number] [facility] [phone] [facility] 804 Branch 2021-10-09 2021-10-09 [facility] [id number] Univers 00:00:00 00:00:00 [facility] [id number] [facility] 2021-10-09 2021-10-09 Orders Doctor MEDRANO [id number] Univers 00:00:00 00:00:00 Only Unassigned, NAHUM [id number] ity of [facility] [id number] [facility] [id number] [facility] 009 Branch 2021-10-06 2021-10-06 ambulatory STLMLC STLMLC [id number] Common 00:00:00 00:00:00 [facility] 2021-10-03 2021-10-03 ambulatory STLMLC STLMLC [id number] Common 00:00:00 00:00:00 [facility] 2021-10-03 2021-10-03 ambulatory STLMLC STLMLC [id number] Common 00:00:00 00:00:00 [facility] 2021-10-02 2021-10-02 ambulatory STLMLC STLMLC [id number] Common 00:00:00 00:00:00 [facility] 2021-09-29 2021-09-29 Orders Doctor MITCHELL [id number] Univers 00:00:00 00:00:00 Only Unassigned, NAHUM [id number] ity of [place] [facility] [id number] [place] [id number] [address] 2021-09-28 2021-09-28 Office Shady [facility] [id number] Univers 12:30:00 12:30:00 Visit Thais L SPECIALTY [id number] ity of CARE [id number] [facility] AT [phone] [address] 2021-09-28 2021-09-28 Outpatient R SH[facility] [id number] Univers 12:30:00 12:06:58 RUIQING ity of [facility] 2021-09-27 2021-09-27 ambulatory STLMLC STLMLC [id number] Common 00:00:00 00:00:00 [facility] 2021-09-25 2021-09-25 ambulatory STLMLC STLMLC [id number] Common 00:00:00 00:00:00 [facility] 2021-08-15 2021-08-15 ambulatory STLMLC STLMLC [id number] Common 00:00:00 00:00:00 [facility] 2021-08-15 2021-08-15 ambulatory STLMLC STLMLC [id number] Common 00:00:00 00:00:00 [facility] 2021-08-14 2021-08-14 ambulatory STLMLC STLMLC [id number] Common 00:00:00 00:00:00 [facility] 2021-08-11 2021-08-11 ambulatory STLMLC STLMLC [id number] Common 00:00:00 00:00:00 [facility] Results This patient has no known results.
[2022-03-31 13:58] LABS: SARS-CoV-2 Antigen Rapid Res Negative (Negative)
--- NOTE | 2022-03-31 14:22 | ER ---
Nurse's Notes [facility] Name: Yadira Dykes Age: 36 yrs Sex: Female : 1985 Arrival Date: 03/31/2022 Time: 12:36 Bed 12 Private MD: Derrek Nova Diagnosis: Acute upper respiratory infection, unspecified Presentation: 03/31 12:41 Chief complaint: Patient states: she has been sick X's 1 week. she thought she was ap3 getting better but woke up this morning with increased congestion, making it difficult for her to breath through her nose and she thought she might have "heard a rattle in her chest". Coronavirus screen: Client presents with at least one sign or symptom that may indicate coronavirus-19. Ebola Screen: No symptoms or risks identified at this time. Initial Sepsis Screen: Does the patient meet any 2 criteria? No. Patient's initial sepsis screen is negative. Does the patient have a suspected source of infection? No. Patient's initial sepsis screen is negative. Risk Assessment: Do you want to hurt yourself or someone else? Patient reports no desire to harm self or others. Onset of symptoms was March 23, 2022. 12:41 Method Of Arrival: Ambulatory ap3 12:41 Acuity: CONNIE 4 ap3 Triage Assessment: 12:43 General: Appears ill, Behavior is calm, cooperative, appropriate for age. Pain: ap3 Complains of pain in generalized body aches. EENT: Reports nasal congestion. Neuro: Level of Consciousness is awake, alert, obeys commands, Oriented to person, place, time, situation. Cardiovascular: Patient's skin is warm and dry. Respiratory: Reports cough that is productive, non-productive, Airway is patent Respiratory effort is even, unlabored, Respiratory pattern is regular, symmetrical, Onset: The symptoms/episode began/occurred gradually, the patient has mild shortness of breath. 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 - Social history:: Smoking status: Patient denies any tobacco usage or history of. Screenin:44 Abuse screen: Denies threats or abuse. Nutritional screening: No deficits noted. ap3 Tuberculosis screening: No symptoms or risk factors identified. Fall Risk None identified. Assessment: 13:27 Reassessment: Patient and/or family updated on plan of care and expected duration. Pain bm7 level reassessed. Patient is alert, oriented x 3, equal unlabored respirations, skin warm/dry/pink. Vital Signs: 12:41 BP 123 / 81; Pulse 95; Resp 18; Temp 98.6; Pulse Ox 98% ; Weight 90.72 kg; Height 5 ft. ap3 5 in. (165.10 cm); 13:56 BP 116 / 80; Pulse 88; Resp 16; Temp 98.0(TE); Pulse Ox 97% on R/A; Pain 0/10; bm7 12:41 Body Mass Index 33.28 (90.72 kg, 165.10 cm) ap3 ED Course: 12:36 Patient arrived in ED. am2 12:36 Derrek Nova DO is Private Physician. am2 12:43 Triage completed. ap3 12:44 Arm band placed on left wrist. ap3 12:51 [facility] jl9 12:51 Rodney Jackson MD is Attending Physician. jl9 13:03 Chaya Rios, RN is Primary Nurse. bm7 13:27 Patient has correct armband on for positive identification. Side rails up X 1. bm7 13:27 No provider procedures requiring assistance completed. COVID swab sent to lab. Flu bm7 and/or RSV swab sent to lab. Administered Medications: No medications were administered Medication: 13:27 VIS not applicable for this client. bm7 Outcome: 14:21 Discharge ordered by . jl9 14:53 Patient left the ED. bm7 Signatures: Elyse Lin am2 Elyse Polanco, RN RN ap3 Chaya Rios, VANI RN bm7 Lopez Membreno jl9
--- NOTE | 2022-03-31 14:22 | EDPHYS ---
Physician Documentation [facility] Name: Yadira Dykes Age: 36 yrs Sex: Female : 1985 Arrival Date: 03/31/2022 Time: 12:36 Bed 12 Private MD: Avtar [facility] ED Physician Rodney Jackson HPI: 03/31 13:57 This 36 yrs old Female presents to ER via Ambulatory with complaints of Cough jl9 and generalized weakness. . 13:57 The patient has shortness of breath during heavy activity. Onset: The symptoms/episode jl9 began/occurred 6 day(s) ago. Duration: The symptoms are intermittent. Associated signs and symptoms: Pertinent positives: fever, Pertinent negatives: chest pain. 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 - Social history:: Smoking status: Patient denies any tobacco usage or history of. ROS: 13:58 Constitutional: Positive for body aches, fatigue, malaise. jl9 13:59 Eyes: Negative for injury, pain, redness, and discharge, ENT: Negative for injury, jl9 pain, and discharge, Neck: Negative for injury, pain, and swelling, Cardiovascular: Negative for chest pain, palpitations, and edema. 13:59 Abdomen/GI: Negative for abdominal pain, nausea, vomiting, diarrhea, and constipation, Back: Negative for injury and pain, : Negative for injury, bleeding, discharge, and swelling, MS/Extremity: Negative for injury and deformity, Skin: Negative for injury, rash, and discoloration, Neuro: Negative for headache, weakness, numbness, tingling, and seizure, Psych: Negative for depression, anxiety, suicide ideation, homicidal ideation, and hallucinations, Allergy/Immunology: Negative for hives, rash, and allergies, Endocrine: Negative for neck swelling, polydipsia, polyuria, polyphagia, and marked weight changes, Hematologic/Lymphatic: Negative for swollen nodes, abnormal bleeding, and unusual bruising. 13:59 Respiratory: Positive for cough, with no reported sputum. Exam: 13:59 Constitutional: This is a well developed, well nourished patient who is awake, alert, jl9 and in no acute distress. Head/Face: Normocephalic, atraumatic. Eyes: Pupils equal round and reactive to light, extra-ocular motions intact. Lids and lashes normal. Conjunctiva and sclera are non-icteric and not injected. Cornea within normal limits. Periorbital areas with no swelling, redness, or edema. ENT: Mucous membranes moist. Neck: Trachea midline, no thyromegaly or masses palpated, and no cervical lymphadenopathy. Supple, full range of motion without nuchal rigidity, or vertebral point tenderness. No Meningismus. Chest/axilla: Normal chest wall appearance and motion. Nontender with no deformity. No lesions are appreciated. Cardiovascular: Regular rate and rhythm with a normal S1 and S2. No gallops, murmurs, or rubs. Normal PMI, no JVD. No pulse deficits. Respiratory: Lungs have equal breath sounds bilaterally, clear to auscultation and percussion. No rales, rhonchi or wheezes noted. No increased work of breathing, no retractions or nasal flaring. Abdomen/GI: Soft, non-tender, with normal bowel sounds. No distension or tympany. No guarding or rebound. No evidence of tenderness throughout. Back: No spinal tenderness. No costovertebral tenderness. Full range of motion. Skin: Warm, dry with normal turgor. Normal color with no rashes, no lesions, and no evidence of cellulitis. MS/ Extremity: Pulses equal, no cyanosis. Neurovascular intact. Full, normal range of motion. Neuro: Awake and alert, GCS 15, oriented to person, place, time, and situation. Cranial nerves II-XII grossly intact. Motor strength 5/5 in all extremities. Sensory grossly intact. Cerebellar exam normal. Normal gait. Psych: Awake, alert, with orientation to person, place and time. Behavior, mood, and affect are within normal limits. Vital Signs: 12:41 BP 123 / 81; Pulse 95; Resp 18; Temp 98.6; Pulse Ox 98% ; Weight 90.72 kg; Height 5 ft. ap3 5 in. (165.10 cm); 13:56 BP 116 / 80; Pulse 88; Resp 16; Temp 98.0(TE); Pulse Ox 97% on R/A; Pain 0/10; bm7 12:41 Body Mass Index 33.28 (90.72 kg, 165.10 cm) ap3 MDM: 12:51 Patient medically screened. jl9 14:00 Data reviewed: vital signs, nurses notes. jl9 03/31 13:02 Order name: Flu; Complete Time: 14:01 jl9 03/31 13:11 Order name: SARS RAPID; Complete Time: 14:01 jl9 Administered Medications: No medications were administered Disposition Summary: 03/31/22 14:21 Discharge Ordered Location: Home jl9 Condition: Stable jl9 Diagnosis - Acute upper respiratory infection, unspecified jl9 Followup: jl9 - With: Private Physician - When: 1 - 2 days - Reason: Recheck today's complaints, Continuance of care, Re-evaluation by your physician Discharge Instructions: - Discharge Summary Sheet jl9 - Upper Respiratory Infection, Adult jl9 Forms: - Medication Reconciliation Form jl9 - Thank You Letter jl9 - Antibiotic Education jl9 - Prescription Opioid Use jl9 Prescriptions: - Bromfed DM 2-30-10 mg/5 mL Oral syrup - take 10 milliliter by ORAL route every 4 hours As needed; 100 milliliter; jl9 Refills: 0, Product Selection Permitted - Amoxicillin 875 mg Oral Tablet - take 1 tablet by ORAL route every 12 hours for 7 days; 14 tablet; Refills: 0, jl9 Product Selection Permitted - Medrol (Tab) 4 mg Oral Tablets, Dose Pack - take 1 tablet by ORAL route as directed - follow package instructions; 1 jl9 packet; Refills: 0, Product Selection Permitted Signatures: Dispatcher [employer] Elyse Bourgeois RN RN jhon3 Lopez Membreno jl9
[2022-03-31 15:57] VITALS: BP 116/80; TEMP 98; O2SAT 97
== END 2022-03-31 14:53 | disposition home or self-care (01) ==
LOC: ER 12:31
DX: J06.9 Acute upper respiratory infection, unspecified (principal); Z20.822 Contact with and (suspected) exposure to COVID-19; Z88.8 Allergy status to other drugs, medicaments and biological substances
CPT/HCPCS: 36415; 87804; 87811; 99283

== ENCOUNTER 2024-10-18 15:42 | Emergency (ER) | payer OTHER ==
--- OUTSIDE RECORDS SUMMARY | 2024-10-18 15:45 | XMS REPORT | Continuity of Care Document ---
Author Name Unknown Address [address] [facility] [address] [place] [address] [facility] thconnect Address [address] [facility] [place] [address] Care Team Providers Care Home Service Demonstrator Name Role Phone Jacinda Mckeon Primary Care Physician [phone] Derrek Nova Attending Clinician Unavailable Gregoria Simms Attending Clinician [phone] GREGORIA SERVIN Attending Clinician Unavailable Unknown, Attending Attending Clinician Unavailab Thais Rajan MD Attending Clinician THAIS CARUSO Attending Clinician Unavailable Doctor Unassigned, [place] Attending Clinician U THAIS Keith Admitting Clinician Unavailable Payers Payer Name Policy Type Policy Number Effective Date Expirati on Date Source [facility] [id number] 2021 00:00:00 Problems Condition Name Condition Details Condition Category Status Onset Date Resolution Date Last Treatment Date Treating Clinician Comments Source [id number] Body mass index [BMI] 34.0-34.9, adult Problem [facility] [id number] Other obesity due to excess calories Problem [facility] [id number] Mixed hyperlipid emia Problem [facility] [id number] Peripheral polyneurop athy Problem [facility] [id number] Migraine with aura and without status migrainosu s, not intractabl e Problem [facility] [id number] GERD without esophagiti s Problem [facility] [id number] Primary insomnia Problem [facility] [id number] Non-season al allergic rhinitis, unspecifie d trigger Problem [facility] [id number] Generalize d anxiety disorder Problem [facility] No known active problems No known active problems Disease [facility] Allergies, Adverse Reactions, Alerts Allergy Name Allergy Type Status Severity Reaction(s) Onset Date Inactive Date Treating Clinician Comments Source Gayatri anderson Propensi ty to adverse reaction to drug Active 1-14 00:00: 00 Adria Nunes Prometha zine Propensi ty to adverse reaction s Active Hives 2- 00:00: 00 [facility] PROMETHA ZINE DRUG INGREDI Active Hives 09-28 00:00: 00 [facility] prometha zine prometha zine Active Unknown [facility] Social History Social Habit Start Date Stop Date Quantity Comments Source History of Tobacco Use [facility] Sex Assigned At [facility] History SDOH Alcohol Std Drinks [facility] History SDOH Alcohol Binge [facility] Exposure to SARS-CoV-2 (event) Not sure [facility] Tobacco use and exposure 2021-09-28 00:00:00 2021-09-28 00:00:00 Smokeless tobacco non-user [facility] Alcohol intake 2021-09-28 00:00:00 2021-09-28 00:00:00 Current drinker of alcohol (finding) [facility] History SDOH Alcohol Frequency 2021-09-28 00:00:00 2021-09-28 00:00:00 1 [facility] Alcohol Comment 2021-09-28 00:00:00 2021-09-28 00:00:00 occasionally [facility] History of Social function 2021-09-28 00:00:00 2021-09-28 00:00:00 [facility] Smoking Status Start Date Stop Date Source Never Smoker [facility] Medications Ordered Medication Name Filled Medication Name Start Date Stop Date Current Medication? Ordering Clinician Indication Dosage Frequency Signature (SIG) Comments Components Source albuterol sulfate HFA 90 mcg/actuati on aerosol inhaler 10-02 00:00: 00 Yes 12mcg/a ctuatio n Adria Nunes promethazin e-DM 6.25 mg-15 mg/5 mL oral syrup - 00:00: 00 Yes 5mg/5 mL Adria Nunes amitriptyli ne 50 mg tablet - 00:00: 00 Yes 1mg Adria Nunes furosemide 20 mg tablet 09-08 00:00: 00 Yes 1mg Adira Nunes ketorolac (TORADOL) injection 30 mg 12-26 21:30: 00 12-26 20:55 :00 No [id number] 30mg 30 mg, Intramuscu lar, ONCE, 1 dose, On Sat12/27/23 at 1630, [facility] Phentermine HCl 37.5 MG Phentermine HCl 37.5 MG 2021-08 1- 00:00: 00 No 1{capsu le} QD Phentermin e HCl 37.5 MG SUMAtriptan Succinate 100 MG SUMAtriptan Succinate 100 MG 2021-08 0-31 00:00: 00 No QD SUMAtripta n Succinate 100 MG methylPREDN ISolone 4 MG methylPREDN ISolone 4 MG -16 00:00: 00 05-17 00:00 :00 No QD methylPRED NISolone 4 MG Gabapentin 300 MG Gabapentin 300 MG - 00:00: 00 No 1{capsu le} QD Gabapentin 300 MG Gabapentin 300 MG Gabapentin 300 MG - 00:00: 00 No 1{capsu le} QD Gabapentin 300 MG Gabapentin 300 MG Gabapentin 300 MG - 00:00: 00 No 1{capsu le} QD Gabapentin 300 MG Gabapentin 300 MG Gabapentin 300 MG - 00:00: 00 No 1{capsu le} QD Gabapentin 300 MG Adipex-P 37.5 MG Adipex-P 37.5 MG - 00:00: 00 12-23 00:00 :00 No 1{table t} QD Adipex-P 37.5 MG Adipex-P 37.5 MG Adipex-P 37.5 MG - 00:00: 00 12-23 00:00 :00 No 1{table t} QD Adipex-P 37.5 MG gadoteridol (PROHANCE-2 0 mL) injection 0.2 mL/kg 10-09 18:30: 00 10-09 18:15 :00 No [id number] .2mL/kg 0.2 mL/kg, Intravenou s, ONCE, 1 dose, On Sat10/09/21 at 1230, Routine [facility] diphenhydra mine HCl (BENADRYL ALLERGY ORAL) 09-28 11:31: 59 Yes Take by mouth. [facility] fluticasone propionate 50 mcg/actuati on nasal spray 09-28 11:31: 59 Yes Use in each nostril daily. [facility] amitriptyli ne 25 mg tablet 09-28 00:00: 00 Yes [id number] 25mg Take 1 tablet by mouth at bedtime. [facility] Ibuprofen 200 MG Ibuprofen 200 MG No TID Ibuprofen 200 MG Benadryl Allergy 25 MG Benadryl Allergy 25 MG No 3{table ts} QD Benadryl Allergy 25 MG Ibuprofen 200 MG Ibuprofen 200 MG No TID Ibuprofen 200 MG Benadryl Allergy 25 MG Benadryl Allergy 25 MG No 3{table ts} QD Benadryl Allergy 25 MG SUMAtriptan SUMAtriptan No DEGROOT MAtripta n Benadryl Allergy 25 MG Benadryl Allergy 25 MG No 3{table ts} QD Benadryl Allergy 25 MG amitriptyli ne 50 MG amitriptyli ne 50 MG No 1{table t_at_be dtime} QD amitriptyl ine 50 MG SUMAtriptan SUMAtriptan No DEGROOT MAtripta n Benadryl Allergy 25 MG Benadryl Allergy 25 MG No 3{table ts} QD Benadryl Allergy 25 MG Ibuprofen 200 MG Ibuprofen 200 MG No TID Ibuprofen 200 MG Amitriptyli ne HCl 50 MG Amitriptyli ne HCl 50 MG No Amitriptyl ine HCl 50 MG Ibuprofen 200 MG Ibuprofen 200 MG No TID Ibuprofen 200 MG Amitriptyli ne HCl 50 MG Amitriptyli ne HCl 50 MG No QD Amitriptyl ine HCl 50 MG Benadryl Benadryl No Benadryl Benadryl Allergy 25 MG Benadryl Allergy 25 MG No 3{table ts} QD Benadryl Allergy 25 MG SUMAtriptan SUMAtriptan No DEGROOT MAtripta n Ibuprofen 200 MG Ibuprofen 200 MG No TID Ibuprofen 200 MG Gabapentin 300 MG Gabapentin 300 MG No 1{capsu le} QD Gabapentin 300 MG Amitriptyli ne HCl 50 MG Amitriptyli ne HCl 50 MG No QD Amitriptyl ine HCl 50 MG Benadryl Allergy 25 MG Benadryl Allergy 25 MG No 3{table ts} QD Benadryl Allergy 25 MG amitriptyli ne 25 mg amitriptyli ne 25 mg No amitriptyl ine 25 mg Amitriptyli ne HCl 50 MG Amitriptyli ne HCl 50 MG No QD Amitriptyl ine HCl 50 MG SUMAtriptan Succinate 100 MG SUMAtriptan Succinate 100 MG No QD SUMAtripta n Succinate 100 MG Ibuprofen 200 MG Ibuprofen 200 MG No TID Ibuprofen 200 MG Benadryl Allergy 25 MG Benadryl Allergy 25 MG No 3{table ts} QD Benadryl Allergy 25 MG Gabapentin 300 MG Gabapentin 300 MG No 1{capsu le} QD Gabapentin 300 MG Ibuprofen 200 MG Ibuprofen 200 MG No TID Ibuprofen 200 MG Amitriptyli ne HCl 50 MG Amitriptyli ne HCl 50 MG No QD Amitriptyl ine HCl 50 MG Benadryl Benadryl No Benadryl Benadryl Allergy 25 MG Benadryl Allergy 25 MG No 3{table ts} QD Benadryl Allergy 25 MG Ibuprofen 200 MG Ibuprofen 200 MG No TID Ibuprofen 200 MG Amitriptyli ne HCl 50 MG Amitriptyli ne HCl 50 MG No QD Amitriptyl ine HCl 50 MG Benadryl Benadryl No Benadryl Benadryl Allergy 25 MG Benadryl Allergy 25 MG No 3{table ts} QD Benadryl Allergy 25 MG Vital Signs Vital Name Observation Time Observation Value Jennifer heard Systolic blood pressure 2023-12-27 20:26:00 124 mm[Hg] [facility] Diastolic blood pressure 2023-12-27 20:26:00 84 mm[Hg] [facility] Heart rate 2023-12-27 20:25:00 71 /min [facility] Body temperature 2023-12-27 20:25:00 36.72 Clarissa [facility] Respiratory rate 2023-12-27 20:25:00 18 /min [facility] Body weight 2023-12-27 20:25:00 98.204 kg [facility] BMI 2023-12-27 20:25:00 34.94 kg/m2 [facility] Oxygen saturation in Arterial blood by Pulse oximetry 2023-12-27 20:25:00 96 /min [facility] height 2022-07-05 08:00:00 66 [in_i] [facility] weight 2022-07-05 08:00:00 207 [lb_av] [facility] temperature 2022-07-05 08:00:00 97.4 [degF] [facility] bmi 2022-07-05 08:00:00 33.41 kg/m2 [facility] blood pressure systolic 2022-07-05 08:00:00 133 mm[Hg] [facility] blood pressure diastolic 2022-07-05 08:00:00 82 mm[Hg] [facility] height 2022-06-25 16:30:00 66 [in_i] [facility] weight 2022-06-25 16:30:00 209 [lb_av] [facility] temperature 2022-06-25 16:30:00 98 [degF] [facility] bmi 2022-06-25 16:30:00 33.73 kg/m2 [facility] blood pressure systolic 2022-06-25 16:30:00 128 mm[Hg] [facility] blood pressure diastolic 2022-06-25 16:30:00 70 mm[Hg] [facility] height 2022-05-11 11:20:00 66 [in_i] [facility] weight 2022-05-11 11:20:00 207.5 [lb_av] [facility] bmi 2022-05-11 11:20:00 33.49 kg/m2 [facility] height 2022-04-26 14:10:00 66 [in_i] [facility] weight 2022-04-26 14:10:00 207.5 [lb_av] Co [facility] temperature 2022-04-26 14:10:00 97.6 [degF] [facility] bmi 2022-04-26 14:10:00 33.49 kg/m2 [facility] oximetry 2022-04-26 14:10:00 96 % [facility] respiratory rate 2022-04-26 14:10:00 17 /min [facility] blood pressure systolic 2022-04-26 14:10:00 138 mm[Hg] [facility] blood pressure diastolic 2022-04-26 14:10:00 71 mm[Hg] [facility] height 2021-11-07 08:30:00 66 [in_i] [facility] weight 2021-11-07 08:30:00 204 [lb_av] [facility] bmi 2021-11-07 08:30:00 32.92 kg/m2 [facility] blood pressure systolic 2021-11-07 08:30:00 126 mm[Hg] [facility] blood pressure diastolic 2021-11-07 08:30:00 82 mm[Hg] [facility] height 2021-10-24 08:00:00 66 [in_i] [facility] weight 2021-10-24 08:00:00 215 [lb_av] [facility] temperature 2021-10-24 08:00:00 96.9 [degF] [facility] bmi 2021-10-24 08:00:00 34.7 kg/m2 [facility] blood pressure systolic 2021-10-24 08:00:00 132 mm[Hg] [facility] blood pressure diastolic 2021-10-24 08:00:00 80 mm[Hg] [facility] height 2021-10-02 08:30:00 66 [in_i] [facility] weight 2021-10-02 08:30:00 210.9 [lb_av] [facility] temperature 2021-10-02 08:30:00 97.8 [degF] [facility] bmi 2021-10-02 08:30:00 34.04 kg/m2 [facility] oximetry 2021-10-02 08:30:00 97 % [facility] respiratory rate 2021-10-02 08:30:00 17 /min [facility] blood pressure systolic 2021-10-02 08:30:00 128 mm[Hg] [facility] blood pressure diastolic 2021-10-02 08:30:00 69 mm[Hg] [facility] Systolic blood pressure 2021-09-28 17:13:00 134 mm[Hg] [facility] Diastolic blood pressure 2021-09-28 17:13:00 90 mm[Hg] [place] [facility] Heart rate 2021-09-28 17:13:00 98 /min [facility] Body temperature 2021-09-28 17:13:00 37 Clarissa [facility] Body height 2021-09-28 17:13:00 167.6 cm [facility] Body weight 2021-09-28 17:13:00 95.255 kg [facility] BMI 2021-09-28 17:13:00 33.89 kg/m2 [facility] Oxygen saturation in Arterial blood by Pulse oximetry 2021-09-28 17:13:00 96 /min [place] [facility] height 2021-09-27 08:00:00 66 [in_i] [facility] weight 2021-09-27 08:00:00 207 [lb_av] [facility] temperature 2021-09-27 08:00:00 98.1 [degF] [facility] bmi 2021-09-27 08:00:00 33.41 kg/m2 [facility] blood pressure systolic 2021-09-27 08:00:00 132 mm[Hg] [facility] blood pressure diastolic 2021-09-27 08:00:00 84 mm[Hg] [facility] bmi 2021-08-11 09:10:00 33.57 kg/m2 [facility] oximetry 2021-08-11 09:10:00 98 % [facility] respiratory rate 2021-08-11 09:10:00 16 /min [facility] blood pressure systolic 2021-08-11 09:10:00 115 mm[Hg] [facility] blood pressure diastolic 2021-08-11 09:10:00 60 mm[Hg] [facility] height 2021-08-11 09:10:00 66 [in_i] [facility] weight 2021-08-11 09:10:00 208.0 [lb_av] [facility] temperature 2021-08-11 09:10:00 97.4 [degF] [facility] Heart Rate 2024-10-02 13:43:00 89.00 /min Corine en F Des Respiratory Rate 2024-10-02 13:43:00 18.00 /min Adria Cecilio Nunes BP Systolic 2024-10-02 13:43:00 124 mm[Hg] Step hen F Des BP Diastolic 2024-10-02 13:43:00 86 mm[Hg] Toi phen F Des Weight Measured 2024-10-02 13:43:00 207.80 pounds Adriavicky Nunes Height Measured 2024-10-02 13:43:00 64.37 inches Adria Nunes Body Temperature 2024-10-02 13:43:00 97.60 degrees Adria Cecilio Nunes BP Systolic 2024-09-08 15:41:00 140 mm[Hg] Step hen F Des BP Diastolic 2024-09-08 15:41:00 74 mm[Hg] Toi phen Cecilio Nunes Weight Measured 2024-09-08 15:41:00 206.00 pounds Adria Nunes Height Measured 2024-09-08 15:41:00 64.37 inches Adria Nunes Body Temperature 2024-09-08 15:41:00 97.80 degrees Adria Nunes Heart Rate 2024-09-08 15:41:00 85.00 /min Corine en F Des Respiratory Rate 2024-09-08 15:41:00 16.00 /min Adria Nunes Procedures Procedure Date / Time Performed Performing Clinician Source XR KNEE 3 VW LEFT 2023-12-27 21:06:[facility] 2021-10-09 18:21:43 Lizy Caruso [facility] ASSIGNMENT OF BENEFITS 2021-10-09 16:24:12 Docto r Unassigned, [place] [facility] PATIENT QUESTIONNAIRE 2021-09-29 06:01:00 Doctor Unassigned, [place] [facility] Encounters Start Date/Time End Date/Time Encounter Type Admission Type Attending [facility] Care Facility Care Department Encounter ID Source 2022-09-27 10:51:01 [id number] [facility] 2022-09-26 08:10:01 [facility] [id number] [facility] 2022-07-03 13:24:02 [facility] [id number] [facility] 2021-12-25 15:43:02 [facility] [id number] [facility] 2021-10-23 11:46:02 [facility] [id number] [facility] 2021-10-21 07:35:00 [facility] [id number] [facility] 2021-09-29 09:13:00 [facility] [id number] [facility] 2021-09-27 08:03:03 [facility] [id number] [facility] 2021-09-20 14:26:11 Outpatient Nova, [facility] [id number] [facility] 2024-10-02 13:35:58 2024-10-02 13:35:58 Outpatient SFA SFA [id number] Adria Nunes 2024-10-02 00:00:00 2024-10-02 00:00:00 Outpatient Visit SFA [id number] Adria Nunes 2023-12-27 15:40:53 2023-12-27 23:59:00 Hospital Encounter Gregoria Servin [facility] [id number] [id number] [id number] [id number] [facility] 2023-12-27 15:40:53 2023-12-27 23:59:00 Outpatient R GREGORIA SERVIN [facility] [id number] [facility] 2023-12-27 15:00:00 2023-12-27 15:20:00 Urgent Care Gregoria Servin Unknown, Attending [facility] [id number] [id number] [id number] [id number] [facility] 2023-12-27 00:00:00 2023-12-27 00:00:00 Telephone Gregoria Servin [facility] [id number] 350.1.13.10 [id number] [id number] [facility] 2022-07-05 00:00:00 2022-07-05 00:00:00 OFFICE VISIT ESTAB PT LEVEL 4 STLMLC STLMLC [id number] [facility] 2022-06-25 00:00:00 2022-06-25 00:00:00 OFFICE VISIT ESTAB PT LEVEL 4 STLMLC STLMLC [id number] [facility] 2022-06-21 00:00:00 2022-06-21 00:00:00 (TEL) STLMLC STLMLC [id number] [facility] 2022-05-31 00:00:00 2022-05-31 00:00:00 (TEL) STLMLC STLMLC [id number] [facility] 2022-05-11 00:00:00 2022-05-11 00:00:00 OFFICE VISIT EST PT LEVEL 3 STLMLC STLMLC [id number] [facility] 2022-05-10 00:00:00 2022-05-10 00:00:00 (TEL) STLMLC STLMLC [id number] [facility] 2022-04-26 00:00:00 2022-04-26 00:00:00 OFFICE VISIT ESTAB PT LEVEL 4 STLMLC STLMLC [id number] [facility] 2021 00:00:00 2021 00:00:00 Telephone Thais Caruso [facility] 1..840.114 350.1.13.10 4.2.7.2.686 [id number] [facility] 2021-11-27 09:30:00 2021-11-27 09:30:00 Outpatient R THAIS CARUSO [facility] [id number] [facility] 2021-11-13 00:00:00 2021-11-13 00:00:00 (TEL) STLMLC STLMLC [id number] [facility] 2021-11-07 00:00:00 2021-11-07 00:00:00 OFFICE VISIT EST PT LEVEL 3 STLMLC STLMLC [id number] [facility] 2021-10-24 00:00:00 2021-10-24 00:00:00 OFFICE VISIT ESTAB PT LEVEL 4 STLMLC STLMLC [id number] [facility] 2021-10-09 10:28:15 2021-10-09 23:59:00 Outpatient R THAIS CARUSO [facility] [id number] [facility] 2021-10-09 10:28:15 2021-10-09 23:59:00 Hospital Encounter Thais Caruso [facility] ..840.114 350.1.13.10 4.2.7.2.686 [id number] [facility] 2021-10-09 00:00:00 2021-10-09 00:00:00 Orders Only Doctor Unassigned, [place] [facility] 1..840.114 350.1.13.10 4.2.7.2.686 [id number] [facility] 2021-10-06 00:00:00 2021-10-06 00:00:00 (TEL) STLMLC STLMLC [id number] [facility] 2021-10-03 00:00:00 2021-10-03 00:00:00 (TEL) STLMLC STLMLC [id number] [facility] 2021-10-03 00:00:00 2021-10-03 00:00:00 (INJ) Injection STLMLC STLMLC [id number] [facility] 2021-10-02 00:00:00 2021-10-02 00:00:00 PREV VISIT EST AGE 18-39 STLMLC STLMLC [id number] [facility] 2021-09-29 00:00:00 2021-09-29 00:00:00 Orders Only Doctor Unassigned, [place] [facility] 1..840.114 350.1.13.10 4.2.7.2.686 [id number] [facility] 2021-09-28 12:30:00 2021-09-28 12:30:00 Outpatient R THAIS CARUSO [facility] [id number] [facility] 2021-09-28 12:30:00 2021-09-28 12:30:00 Office Visit Thais Caruso [facility] 1..840.114 350.1.13.10 4.2.7.2.686 [id number] [facility] 2021-09-28 12:30:00 2021-09-28 12:06:58 Outpatient R THAIS CARUSO [facility] [id number] [facility] 2021-09-27 00:00:00 2021-09-27 00:00:00 OFFICE VISIT NEW PT LEVEL 4 STLMLC STLMLC [id number] [facility] 2021-09-25 00:00:00 2021-09-25 00:00:00 (TEL) STLC STLC [id number] [facility] 2021-08-15 00:00:00 2021-08-15 00:00:00 (TEL) STLMLC STLMLC [id number] [facility] 2021-08-15 00:00:00 2021-08-15 00:00:00 (TEL) STLMLC STLC [id number] [facility] 2021-08-14 00:00:00 2021-08-14 00:00:00 (TEL) STLC STLC [id number] [facility] 2021-08-11 00:00:00 2021-08-11 00:00:00 OFFICE VISIT [facility] [id number] [facility] Results Test Description Test Time Test Comments Results Resul t Comments Source XR KNEE 3 VW LEFT 3 22:27:41 EXAM: XR KNEE 3 VW LEFT HISTORY: knee pain, s/p knee replacement 10 years ago COMPARISON: None available FINDINGS: Imaging of the knee demonstrates no acute fracture or effusion. Lateralplate fixation hardware secures a healed lateral tibial plateau fracturewith minimal perihardware lucency seen about the distal plate fixationscrew. Articular surface irregularity is present at the lateral tibialplateau. Tricompartmental marginal osteophytes are seen with hypertrophy ofthe tibial spines. Osseous bodies are present along the anterior lateralknee joint line. [facility] Notes Date/Time Note Provider Source [facility] 18:00:38 Reviewed XRAY results with patient, referral placed to ortho for follow up XR KNEE 3 VW LEFT Result Date: 12/27/2023 EXAM: XR KNEE 3 VW LEFT HISTORY: knee pain, s/p knee replacement 10 years ago COMPARISON: None available FINDINGS: Imaging of the knee demonstrates no acute fracture or effusion. Lateral plate fixation hardware secures a healed lateral tibial plateau fracture with minimal perihardware lucency seen about the distal plate fixation screw. Articular surface irregularity is present at the lateral tibial plateau. Tricompartmental marginal osteophytes are seen with hypertrophy of the tibial spines. Osseous bodies are present along the anterior lateral knee joint line. Posttraumatic osteoarthritic change of the knee with hardware fixation of lateral tibial plateau fracture. No acute fracture, erosion or dislocation. IShilo MD., have reviewed this study and agree with the above report. [facility]
[2024-10-18] MEDS ORDERED: KETOROLAC 30 MG/ML INJ ONE (17:08)
[2024-10-18] MEDS ORDERED: METOCLOPRAMIDE 10 MG/2mL INJ ONE (17:08)
[2024-10-18] MEDS ORDERED: DIPHENHYDRAMINE 50 MG/ML VIAL ONE (17:08)
[2024-10-18] MEDS ORDERED: NA CHLORIDE 0.9% 1,000 ML ONE (17:08)
[2024-10-18 17:39] LABS: Absolute Eosinophils 0.2 K/uL (0-0.5); Absolute Monocytes 0.7 K/uL (0.1-1.3); Absolute Neutrophil 5.9 K/uL (1.8-8.0); Basophils % 0.5 % (0-1.3); Eosinophils % 2.1 % (0-4.4); Hematocrit 41.9 % (36.0-45.0); Hemoglobin 14.1 g/dL (12.0-15.0); Lymphocytes % 22.2 % (15.3-44.8); MCHC 33.8 g/dL (32.0-36.0); MCV 91.9 fL (80-100); Monocytes % 8.1 % (3.3-12.3); Neutrophils % 67.1 % (41.7-73.7); Platelets 227 thou/uL (152-406); RBC Red Blood Cell Count 4.56 M/uL (3.86-4.86); Red Cell Distribution Width 13.4 % (12.1-15.2)
[2024-10-18 17:40] LABS: Albumin 3.8 g/dL (3.4-5.0); Albumin/Globulin Ratio 1.1 (1.1-1.8); Anion Gap 9.9 mEq/L (5.0-15.0); Bilirubin Total 0.3 mg/dL (0.2-1.0); Globulin 3.6 g/dL (2.3-3.5); Potassium 3.9 mEq/L (3.5-5.1); Protein, Total 7.4 g/dL (6.4-8.2)
--- NOTE | 2024-10-18 18:07 | RAD REPORT ---
EXAM: CT brain without contrast HISTORY: Headache COMPARISON: None TECHNIQUE: Multiple contiguous axial images were obtained and a CT of the brain without contrast.. Sagittal and coronal reconstruction performed. Automated exposure control, adjustment of the mA and/or kV according to patient size, and/or iterative reconstruction. Unless otherwise specified, incidental f indings do not require dedicated imaging follow-up FINDINGS: An intracranial bleed is not seen Ventricles are normal caliber No extra-axial fluid collection noted No significant hypodensity within the brain No fluid within the visualized sinuses or mastoids noted. IMPRESSION: No acute intracranial abnormality noted. If the patient continues to have symptoms to suggest an acute intracranial abnormality then MRI of th e brain would be recommended.
--- NOTE | 2024-10-18 18:12 | EDPHYS ---
Physician Documentation [facility] Name: Yadira Dykes Age: 38 yrs Sex: Female : 1985 Arrival Date: 10/18/2024 Time: 15:42 Bed 11 Private MD: JARRED Physician Rodney Jackson HPI: 10/18 18:07 This 38 yrs old Female presents to ER via Ambulatory with complaints of desi Headache. 18:07 The patient complains of pain to the forehead, left frontal area and right frontal desi area. The patient describes the headache as aching. Onset: The symptoms/episode began/occurred 1 day(s) ago. Associated signs and symptoms: The patient has no apparent associated signs or symptoms. Severity of symptoms: At its worst the pain was moderate, in the emergency department the pain is unchanged. Headache History: The patient has had previous headaches and this one is similar to previous episodes. The symptoms are alleviated by Darkened room, quiet, remaining still, the symptoms are aggravated by lights, movement, noise, stress. The patient has experienced similar episodes in the past, multiple times. [employer]ENCE: 16:08 LMP N/A - Hysterectomy, Not hb Historical: - Allergies: 16:07 Phenergan; hb - Home Meds: 16:08 Amitriptyline Oral daily [Active]; hb - PMHx: 16:07 Migraine; hb - PSHx: 16:07 Left total knee; Adenoid excision; right ankle sx; Tonsillectomy; Total abdominal hb hysterectomy; - Immunization history:: Adult Immunizations not up to date. - Infectious Disease History:: Denies. - Social history:: Smoking status: Patient denies any tobacco usage or history of. - Family history:: not pertinent. ROS: 18:07 Constitutional: Negative for fever, chills, and weight loss, Eyes: Negative for injury, desi pain, redness, and discharge, ENT: Negative for injury, pain, and discharge, Neck: Negative for injury, pain, and swelling, Cardiovascular: Negative for chest pain, palpitations, and edema, Respiratory: Negative for shortness of breath, cough, wheezing, and pleuritic chest pain, Abdomen/GI: Negative for abdominal pain, nausea, vomiting, diarrhea, and constipation, Back: Negative for injury and pain, : Negative for injury, bleeding, discharge, and swelling, MS/Extremity: Negative for injury and deformity, Skin: Negative for injury, rash, and discoloration, Psych: Negative for depression, anxiety, suicide ideation, homicidal ideation, and hallucinations, Allergy/Immunology: Negative for hives, rash, and allergies, Endocrine: Negative for neck swelling, polydipsia, polyuria, polyphagia, and marked weight changes, Hematologic/Lymphatic: Negative for swollen nodes, abnormal bleeding, and unusual bruising, 18:07 Neuro: Positive for headache, Exam: 18:07 Constitutional: This is a well developed, well nourished patient who is awake, alert, desi and in no acute distress. Head/Face: Normocephalic, atraumatic. Eyes: Pupils equal round and reactive to light, extra-ocular motions intact. Lids and lashes normal. Conjunctiva and sclera are non-icteric and not injected. Cornea within normal limits. Periorbital areas with no swelling, redness, or edema. ENT: Nares patent. No nasal discharge, no septal abnormalities noted. Tympanic membranes are normal and external auditory canals are clear. Oropharynx with no redness, swelling, or masses, exudates, or evidence of obstruction, uvula midline. Mucous membranes moist. Neck: Trachea midline, no thyromegaly or masses palpated, and no cervical lymphadenopathy. Supple, full range of motion without nuchal rigidity, or vertebral point tenderness. No Meningismus. Chest/axilla: Normal chest wall appearance and motion. Nontender with no deformity. No lesions are appreciated. Cardiovascular: Regular rate and rhythm with a normal S1 and S2. No gallops, murmurs, or rubs. Normal PMI, no JVD. No pulse deficits. Respiratory: Lungs have equal breath sounds bilaterally, clear to auscultation and percussion. No rales, rhonchi or wheezes noted. No increased work of breathing, no retractions or nasal flaring. Abdomen/GI: Soft, non-tender, with normal bowel sounds. No distension or tympany. No guarding or rebound. No evidence of tenderness throughout. Back: No spinal tenderness. No costovertebral tenderness. Full range of motion. Skin: Warm, dry with normal turgor. Normal color with no rashes, no lesions, and no evidence of cellulitis. MS/ Extremity: Pulses equal, no cyanosis. Neurovascular intact. Full, normal range of motion., bilateral aka Neuro: Awake and alert, GCS 15, oriented to person, place, time, and situation. Cranial nerves II-XII grossly intact. Motor strength 5/5 in all extremities. Sensory grossly intact. Cerebellar exam normal. Normal gait. Psych: Awake, alert, with orientation to person, place and time. Behavior, mood, and affect are within normal limits. Vital Signs: 16:06 BP 143 / 108; Pulse 80; Resp 18; Temp 97.8; Pulse Ox 100% on R/A; Weight 95.25 kg; hb Height 5 ft. 5 in. ; Pain 8/10; 17:41 BP 156 / 92; Pulse 57; Resp 16; Pulse Ox 100% on 2 lpm NC; jb4 16:06 Body Mass Index 34.95 (95.25 kg, 165.1 cm) hb 16:06 Pain Scale: Adult hb Sarah Coma Score: 18:09 Eye Response: spontaneous(4). Motor Response: obeys commands(6). Verbal Response: desi oriented(5). Total: 15. MDM: 16:00 Medical Screening Exam initiated desi 18:09 Differential diagnosis: cluster headache, hypertensive headache, hypoglycemia, desi hyponatremia, migraine, neoplasm, temporal arteritis, tension headache, traumatic injuries, trigeminal neuralgia, vasomotor headache. Data reviewed: vital signs, nurses notes, lab test result(s), radiologic studies, CT scan. Consideration of Admission/Observation Escalation of care including admission/observation considered. I considered the following discharge prescriptions or medication management in the emergency department Medications were administered in the Emergency Department. See MAR. Independent interpretation of the following test(s) in the Emergency Department CT Scan: My interpretation is ct head neg. Test considered but Not performed: Labs: no ua , pt denies dysuria, urgency , frequency , no flank pain. Care significantly affected by the following chronic conditions: migraine. 10/18 16: Order name: CBC with Diff; Complete Time: 18:04 [facility] 10/18 16: Order name: Comprehensive Metabolic Panel; Complete Time: 18:04 [facility] 10/18 16:02 Order name: CT Head Brain wo Cont; Complete Time: 18:09 [facility] 10/18 16:02 Order name: Oxygen: 2 liters; Complete Time: 17:18 [facility] Administered Medications: 17:18 Drug: NS 0.9% IV 1000 ml IV at 1 bolus Per protocol; to be given as a bolus over 60 jb4 minutes Route: IV; Rate: 1 bolus; Site: right antecubital; 18:39 Follow up: Response: No adverse reaction; Marked relief of symptoms; IV Status: Pt jb4 discharged; IV Intake: 600ml 17:18 Drug: diphenhydrAMINE IVP 50 mg IVP once Route: IVP; Site: right antecubital; jb4 18:38 Follow up: Response: No adverse reaction; Marked relief of symptoms; Pain is decreased jb4 17:18 Drug: metoCLOPramide IVP 10 mg IVP once; over 1 to 2 minutes Route: IVP; Site: right jb4 antecubital; 18:39 Follow up: Response: No adverse reaction; Marked relief of symptoms; Pain is decreased jb4 17:18 Drug: Ketorolac IVP 30 mg IVP once; if preg is neg Route: IVP; Site: right antecubital; jb4 18:39 Follow up: Response: No adverse reaction; Marked relief of symptoms; Pain is decreased jb4 Disposition Summary: 10/18/24 18:12 Discharge Ordered Notes: Location: Home desi Problem: new desi Symptoms: have improved desi Condition: Stable desi Diagnosis - Headache desi - Migraine without aura, not intractable, without status migrainosus desi Followup: desi - With: Private Physician - When: 2 - 3 days - Reason: Recheck today's complaints, Continuance of care, Re-evaluation by your physician Followup: desi - With: Lobito Baldwin MD - When: 2 - 3 days - Reason: Recheck today's complaints, Re-evaluation by your physician Discharge Instructions: - Discharge Summary Sheet desi - General Headache Without Cause desi - Migraine Headache desi - Migraine Headache, [id number] desi - General Headache Without Cause, [id number] desi Forms: - Medication Reconciliation Form desi - Antibiotic Education desi - Prescription Opioid Use desi - Patient Portal Instructions [facility] - Leadership Thank You Letter [facility] Prescriptions: - ondansetron 4 mg Oral Tablet,disintegrating - take 1 tablet ORAL route every 6-8 hours for 5 days; 20 tablet; Refills: 0, desi Product Selection Permitted - Ibuprofen 600 mg Oral Tablet - take 1 tablet ORAL route every 6 hours As needed take with food; 30 tablet; desi Refills: 0, Product Selection Permitted Signatures: Dispatcher [employer] EDRodney Prather MD MD cha Baxter, Heather, RN RN Alvaro Schaefer RN RN jb4 Corrections: (The following items were deleted from the chart) 16:03 16:03 Head Brain Wo [id number] ordered. EDMS EDMS
--- NOTE | 2024-10-18 18:12 | ER ---
Nurse's Notes [facility] Name: Yadira Dykes Age: 38 yrs Sex: Female : 1985 Arrival Date: 10/18/2024 Time: 15:42 Bed 11 Private MD: Diagnosis: Headache;Migraine without aura, not intractable, without status migrainosus Presentation: 10/18 16:06 Chief complaint: Patient states: has a severe migraine , is out of her amitriptyline hb but is out of it, migraine started last night. Coronavirus screen: At this time, the client does not indicate any symptoms associated with coronavirus-19. Ebola Screen: No symptoms or risks identified at this time. Initial Sepsis Screen: Does the patient meet any 2 criteria? No. Patient's initial sepsis screen is negative. Does the patient have a suspected source of infection? No. Patient's initial sepsis screen is negative. Risk Assessment: Do you want to hurt yourself or someone else? Patient reports no desire to harm self or others. Onset of symptoms was October 17, 2024. 16:06 Method Of Arrival: Ambulatory hb 16:06 Acuity: CONNIE 3 hb [employer]: 16:08 LMP N/A - Hysterectomy, Not hb Historical: - Allergies: 16:07 Phenergan; hb - Home Meds: 16:08 Amitriptyline Oral daily [Active]; hb - PMHx: 16:07 Migraine; hb - PSHx: 16:07 Left total knee; Adenoid excision; right ankle sx; Tonsillectomy; Total abdominal hb hysterectomy; - Immunization history:: Adult Immunizations not up to date. - Infectious Disease History:: Denies. - Social history:: Smoking status: Patient denies any tobacco usage or history of. - Family history:: not pertinent. Screenin:41 [facility] ED Fall Risk Assessment (Adult) History of falling in the last 3 months, jb4 including since admission No falls in past 3 months (0 pts) Confusion or Disorientation No (0 pts) Intoxicated or Sedated No (0 pts) Impaired Gait No (0 pts) Mobility Assist Device Used No (0 pt) Altered Elimination No (0 pt) Score/Fall Risk Level 0 - 2 = Low Risk Oriented to surroundings, Maintained a safe environment. Abuse screen: Denies threats or abuse. Nutritional screening: No deficits noted. Tuberculosis screening: No symptoms or risk factors identified. Assessment: 16:40 General: Appears in no apparent distress. uncomfortable, Behavior is cooperative, jb4 anxious, crying. Pain: Complains of pain in migraine headache Pain does not radiate. Pain currently is 10 out of 10 on a pain scale. Neuro: Level of Consciousness is awake, alert, obeys commands, Oriented to person, place, time, situation, Reports numbness in face photophobia. Cardiovascular: Patient's skin is warm and dry. Respiratory: Airway is patent Respiratory effort is even, unlabored, Respiratory pattern is regular, symmetrical. Derm: Skin is intact, Skin is pink, warm \T\ dry. Musculoskeletal: Circulation, motion, and sensation intact. Range of motion: intact in all extremities. 17:40 Reassessment: Patient appears in no apparent distress at this time. Patient and/or jb4 family updated on plan of care and expected duration. Pain level reassessed. Patient is alert, oriented x 3, equal unlabored respirations, skin warm/dry/pink. Patient states feeling better. Patient states symptoms have improved. 18:40 Reassessment: Patient appears in no apparent distress at this time. Patient and/or jb4 family updated on plan of care and expected duration. Pain level reassessed. Patient is alert, oriented x 3, equal unlabored respirations, skin warm/dry/pink. Patient states feeling better. Patient states symptoms have improved. Vital Signs: 16:06 BP 143 / 108; Pulse 80; Resp 18; Temp 97.8; Pulse Ox 100% on R/A; Weight 95.25 kg; hb Height 5 ft. 5 in. ; Pain 8/10; 17:41 BP 156 / 92; Pulse 57; Resp 16; Pulse Ox 100% on 2 lpm NC; jb4 16:06 Body Mass Index 34.95 (95.25 kg, 165.1 cm) hb 16:06 Pain Scale: Adult hb Sarah Coma Score: 18:09 Eye Response: spontaneous(4). Motor Response: obeys commands(6). Verbal Response: desi oriented(5). Total: 15. ED Course: 15:43 Patient arrived in ED. mr 15:59 Rodney Jackson MD is Attending Physician. desi 16:07 Triage completed. hb 16:07 Arm band placed on. hb 17:04 Initial lab(s) drawn, by me, sent to lab. Inserted saline lock: 18 gauge in right jb4 antecubital area, using aseptic technique. Blood collected. 17:39 Alvaro Pérez, RN is Primary Nurse. jb4 17:41 Patient has correct armband on for positive identification. Bed in low position. Call jb4 light in reach. Side rails up X 1. Provided Education on: plan of care. 17:52 CT Head Brain wo Cont In Process Unspecified. EDMS 18:11 Lobito Baldwin MD is Referral Physician. desi 18:40 No provider procedures requiring assistance completed. IV discontinued, intact, jb4 bleeding controlled, No redness/swelling at site. Pressure dressing applied. Administered Medications: 17:18 Drug: NS 0.9% IV 1000 ml IV at 1 bolus Per protocol; to be given as a bolus over 60 jb4 minutes Route: IV; Rate: 1 bolus; Site: right antecubital; 18:39 Follow up: Response: No adverse reaction; Marked relief of symptoms; IV Status: Pt jb4 discharged; IV Intake: 600ml 17:18 Drug: diphenhydrAMINE IVP 50 mg IVP once Route: IVP; Site: right antecubital; jb4 18:38 Follow up: Response: No adverse reaction; Marked relief of symptoms; Pain is decreased jb4 17:18 Drug: metoCLOPramide IVP 10 mg IVP once; over 1 to 2 minutes Route: IVP; Site: right jb4 antecubital; 18:39 Follow up: Response: No adverse reaction; Marked relief of symptoms; Pain is decreased jb4 17:18 Drug: Ketorolac IVP 30 mg IVP once; if preg is neg Route: IVP; Site: right antecubital; jb4 18:39 Follow up: Response: No adverse reaction; Marked relief of symptoms; Pain is decreased jb4 Medication: 17:41 VIS not applicable for this client. jb4 Intake: 18:39 IV: 600ml; Total: 600ml. jb4 Outcome: 18:12 Discharge ordered by . desi 18:40 Discharged to home ambulatory, jb4 18:40 Condition: stable 18:40 Discharge instructions given to patient, Instructed on discharge instructions, follow up and referral plans. medication usage, Demonstrated understanding of instructions, follow-up care, medications, Prescriptions given X 2, 18:41 Patient left the ED. jb4 Signatures: Dispatcher [employer] EDMS Rodney Jackson MD MD cha Rivera, Mary, [facility] Nayely Torres, Alvaro Glass RN, RN RN jb4
[2024-10-18 18:45] VITALS: TEMP 97.8; O2SAT 100
[2024-10-18 18:46] VITALS: BP 156/92
== END 2024-10-18 18:41 | disposition home or self-care (01) ==
LOC: ER 15:42
DX: G43.009 Migraine without aura, not intractable, without status migrainosus (principal)
CPT/HCPCS: 96361; 85025; 36415; 80053; 70450; 96375; 96374; 99284; J2765; J1200; J7030

== ENCOUNTER 2024-11-07 13:34 | Emergency (ER) | payer OTHER ==
--- OUTSIDE RECORDS SUMMARY | 2024-11-07 13:38 | XMS REPORT | Continuity of Care Document ---
Author Name Unknown Address [address] [facility] [address] [place] [address] Organization [facility] [place] Address [address] [facility] [address] [place] [address] Care Team Providers Care Nougat Candy Maker Helper Name Role Phone Lizeth Clark [facility] Primary Care Physician Derrek Nova Attending Clinician Unavailable Gregoria Simms Attending Clinician [phone] GREGORIA SERVIN Attending Clinician Unavailable Unknown, Attending Attending Clinician Unavailab Thais Rajan MD Attending Clinician [phone] THAIS CARUSO Attending Clinician Unavailable Doctor Unassigned, [place] Attending Clinician U THAIS Keith Admitting Clinician Unavailable Payers Payer Name Policy Type Policy Number Effective Date Expirati on Date Source [facility] [id number] 2021 00:00:00 Problems Condition Name Condition Details Condition Category Status Onset Date Resolution Date Last Treatment Date Treating Clinician Comments Source No known active problems No known active problems Disease [facility] [id number] Body mass index [BMI] 34.0-34.9, adult Problem [facility] [id number] Other obesity due to excess calories Problem [facility] [id number] Mixed hyperlipid emia Problem [facility] [id number] Peripheral polyneurop athy Problem [facility] [id number] Migraine with aura and without status migrainosu s, not intractabl e Problem [facility] [id number] GERD without esophagiti s Problem [facility] [id number] Primary insomnia Problem [facility] [id number] Non-season al allergic rhinitis, unspecifie d trigger Problem [facility] [id number] Generalize d anxiety disorder Problem [facility] Allergies, Adverse Reactions, Alerts Allergy Name Allergy Type Status Severity Reaction(s) Onset Date Inactive Date Treating Clinician Comments Source Gayatri anderson Propensi ty to adverse reaction to drug Active 14 00:00: 00 Adria Nunes Prometha zine Propensi ty to adverse reaction s Active Hives 2- 00:00: 00 [facility] PROMETHA ZINE DRUG INGREDI Active Hives 09-28 00:00: 00 [facility] prometha zine prometha zine Active Unknown [facility] Social History Social Habit Start Date Stop Date Quantity Comments Source History SDOH Alcohol Std Drinks [facility] History SDOH Alcohol Binge [facility] Exposure to SARS-CoV-2 (event) Not sure [facility] Use [facility] Sex Assigned At [facility] Tobacco use and exposure 2021-09-28 00:00:00 2021-09-28 00:00:00 Smokeless tobacco non-user [facility] Alcohol intake 2021-09-28 00:00:00 2021-09-28 00:00:00 Current drinker of alcohol (finding) [facility] History SDOH Alcohol Frequency 2021-09-28 00:00:00 2021-09-28 00:00:00 1 [facility] Alcohol Comment 2021-09-28 00:00:00 2021-09-28 00:00:00 occasionally [facility] History of Social function 2021-09-28 00:00:00 2021-09-28 00:00:00 [facility] Smoking Status Start Date Stop Date Source Never Smoker [facility] Medications Ordered Medication Name Filled Medication Name Start Date Stop Date Current Medication? Ordering Clinician Indication Dosage Frequency Signature (SIG) Comments Components Source amitriptyli ne 50 mg tablet - 00:00: 00 Yes 1mg Adria Nunes Reglan 5 mg tablet - 00:00: 00 Yes 1mg Adria Nunes Fioricet 50 mg-300 mg-40 mg capsule 10-19 00:00: 00 Yes 1mg Adria Nunes albuterol sulfate HFA 90 mcg/actuati on aerosol inhaler 10-02 00:00: 00 Yes 12mcg/a ctuatio n Adria Nunes promethazin e-DM 6.25 mg-15 mg/5 mL oral syrup 10-02 00:00: 00 Yes 5mg/5 mL Adria Nunes furosemide 20 mg tablet - 00:00: 00 Yes 1mg Adria Nunes amitriptyli ne 50 mg tablet - 00:00: 00 Yes 1mg Adria Nunes ketorolac (TORADOL) injection 30 mg 12-26 21:30: 00 12-26 20:55 :00 No [id number] 30mg 30 mg, Intramuscu lar, ONCE, 1 dose, On Sat12/27/23 at 1630, Routine [facility] Phentermine HCl 37.5 MG Phentermine HCl 37.5 MG 2021-08 1-10 00:00: 00 No 1{capsu le} QD Phentermin e HCl 37.5 MG SUMAtriptan Succinate 100 MG SUMAtriptan Succinate 100 MG 2021-08 0-31 00:00: 00 No QD SUMAtripta n Succinate 100 MG methylPREDN ISolone 4 MG methylPREDN ISolone 4 MG 9-16 00:00: 00 05-17 00:00 :00 No QD methylPRED NISolone 4 MG Gabapentin 300 MG Gabapentin 300 MG 9- 00:00: 00 No 1{capsu le} QD Gabapentin 300 MG Gabapentin 300 MG Gabapentin 300 MG 04-26 00:00: 00 No 1{capsu le} QD Gabapentin 300 MG Gabapentin 300 MG Gabapentin 300 MG 04-26 00:00: 00 No 1{capsu le} QD Gabapentin 300 MG Gabapentin 300 MG Gabapentin 300 MG 04-26 00:00: 00 No 1{capsu le} QD Gabapentin 300 MG Adipex-P 37.5 MG Adipex-P 37.5 MG 10-24 00:00: 00 12-23 00:00 :00 No 1{table t} QD Adipex-P 37.5 MG Adipex-P 37.5 MG Adipex-P 37.5 MG 10-24 00:00: 00 12-23 00:00 :00 No 1{table t} QD Adipex-P 37.5 MG gadoteridol (PROHANCE-2 0 mL) injection 0.2 mL/kg 10-09 18:30: 00 10-09 18:15 :00 No [id number] .2mL/kg 0.2 mL/kg, Intravenou s, ONCE, 1 dose, On Sat10/09/21 at 1230, Routine [facility] diphenhydra mine HCl (BENADRYL ALLERGY ORAL) 09-28 11:31: 59 Yes Take by mouth. [facility] fluticasone propionate 50 mcg/actuati on nasal spray 09-28 11:31: 59 Yes Use in each nostril daily. [facility] amitriptyli ne 25 mg tablet 09-28 00:00: 00 Yes [id number] 25mg Take 1 tablet by mouth at [...] Vital Name Observation Time Observation Value Comments S félix Systolic blood pressure 2023-12-27 20:26:00 124 mm[Hg] [facility] Diastolic blood pressure 2023-12-27 20:26:00 84 mm[Hg] [facility] Heart rate 2023-12-27 20:25:00 71 /min [facility] Body temperature 2023-12-27 20:25:00 36.72 Clarissa [facility] Respiratory rate 2023-12-27 20:25:00 18 /min [facility] Body weight 2023-12-27 20:25:00 98.204 kg [facility] BMI 2023-12-27 20:25:00 34.94 kg/m2 [facility] Oxygen saturation in Arterial blood by Pulse oximetry 2023-12-27 20:25:00 96 /min [facility] height 2022-07-05 08:00:00 66 [in_i] [facility] weight 2022-07-05 08:00:00 207 [lb_av] Comm on [facility] temperature 2022-07-05 08:00:00 97.4 [degF] Com mon [facility] bmi 2022-07-05 08:00:00 33.41 kg/m2 [facility] blood pressure systolic 2022-07-05 08:00:00 133 mm[Hg] Common [facility] blood pressure diastolic 2022-07-05 08:00:00 82 mm[Hg] Common [facility] height 2022-06-25 16:30:00 66 [in_i] Commo n [facility] weight 2022-06-25 16:30:00 209 [lb_av] Comm on [facility] temperature 2022-06-25 16:30:00 98 [degF] Comm on [facility] bmi 2022-06-25 16:30:00 33.73 kg/m2 [facility] blood pressure systolic 2022-06-25 16:30:00 128 mm[Hg] Common [facility] blood pressure diastolic 2022-06-25 16:30:00 70 mm[Hg] [facility] height 2022-05-11 11:20:00 66 [in_i] Commo n [facility] weight 2022-05-11 11:20:00 207.5 [lb_av] Co on [facility] bmi 2022-05-11 11:20:00 33.49 kg/m2 Comm on [facility] height 2022-04-26 14:10:00 66 [in_i] Commo n [facility] weight 2022-04-26 14:10:00 207.5 [lb_av] Co [facility] temperature 2022-04-26 14:10:00 97.6 [degF] Com mon [facility] bmi 2022-04-26 14:10:00 33.49 kg/m2 Comm on [facility] oximetry 2022-04-26 14:10:00 96 % [facility] respiratory rate 2022-04-26 14:10:00 17 /min [facility] blood pressure systolic 2022-04-26 14:10:00 138 mm[Hg] [facility] blood pressure diastolic 2022-04-26 14:10:00 71 mm[Hg] [facility] height 2021-11-07 08:30:00 66 [in_i] Commo n [facility] weight 2021-11-07 08:30:00 204 [lb_av] Comm on [facility] bmi 2021-11-07 08:30:00 32.92 kg/m2 Comm on [facility] blood pressure systolic 2021-11-07 08:30:00 126 mm[Hg] Common [facility] blood pressure diastolic 2021-11-07 08:30:00 82 mm[Hg] [facility] height 2021-10-24 08:00:00 66 [in_i] Commo n [facility] weight 2021-10-24 08:00:00 215 [lb_av] Comm on [facility] temperature 2021-10-24 08:00:00 96.9 [degF] Com mon [facility] bmi 2021-10-24 08:00:00 34.7 kg/m2 [facility] blood pressure systolic 2021-10-24 08:00:00 132 mm[Hg] Common Spiri t [facility] blood pressure diastolic 2021-10-24 08:00:00 80 mm[Hg] [facility] height 2021-10-02 08:30:00 66 [in_i] Commo n [facility] weight 2021-10-02 08:30:00 210.9 [lb_av] Co mmon [facility] temperature 2021-10-02 08:30:00 97.8 [degF] Com mon [facility] bmi 2021-10-02 08:30:00 34.04 kg/m2 Comm on [facility] oximetry 2021-10-02 08:30:00 97 % Commo [facility] respiratory rate 2021-10-02 08:30:00 17 /min [facility] blood pressure systolic 2021-10-02 08:30:00 128 mm[Hg] [facility] blood pressure diastolic 2021-10-02 08:30:00 69 mm[Hg] [facility] Heart rate 2021-09-28 17:13:00 98 /min [facility] Body temperature 2021-09-28 17:13:00 37 Clarissa [facility] Body height 2021-09-28 17:13:00 167.6 cm [facility] Body weight 2021-09-28 17:13:00 95.255 kg [facility] BMI 2021-09-28 17:13:00 33.89 kg/m2 [facility] Oxygen saturation in Arterial blood by Pulse oximetry 2021-09-28 17:13:00 96 /min [facility] Systolic blood pressure 2021-09-28 17:13:00 134 mm[Hg] [facility] Diastolic blood pressure 2021-09-28 17:13:00 90 mm[Hg] [facility] height 2021-09-27 08:00:00 66 [in_i] Commo n [facility] weight 2021-09-27 08:00:00 207 [lb_av] Comm on [facility] temperature 2021-09-27 08:00:00 98.1 [degF] Com mon [facility] bmi 2021-09-27 08:00:00 33.41 kg/m2 Comm on [facility] blood pressure systolic 2021-09-27 08:00:00 132 mm[Hg] Common [facility] blood pressure diastolic 2021-09-27 08:00:00 84 mm[Hg] Common [facility] bmi 2021-08-11 09:10:00 33.57 kg/m2 Comm on [facility] oximetry 2021-08-11 09:10:00 98 % Commo [facility] respiratory rate 2021-08-11 09:10:00 16 /min [facility] blood pressure systolic 2021-08-11 09:10:00 115 mm[Hg] [facility] blood pressure diastolic 2021-08-11 09:10:00 60 mm[Hg] Common [facility] height 2021-08-11 09:10:00 66 [in_i] Commo [facility] weight 2021-08-11 09:10:00 208.0 [lb_av] Co m[facility] temperature 2021-08-11 09:10:00 97.4 [degF] Com mon [facility] BP Systolic 2024-10-19 15:18:00 138 mm[Hg] Step hen F Des BP Diastolic 2024-10-19 15:18:00 89 mm[Hg] Toi phen F Des Weight Measured 2024-10-19 15:18:00 211.60 pounds Adriavicky Nunes Height Measured 2024-10-19 15:18:00 64.37 inches Adria Cecilio Nunes Body Temperature 2024-10-19 15:18:00 98.20 degrees Adria F Des Heart Rate 2024-10-19 15:18:00 88.00 /min Corine en F Des Respiratory Rate 2024-10-19 15:18:00 16.00 /min Adria F Des Heart Rate 2024-10-02 13:43:00 89.00 /min Corine en F Des Respiratory Rate 2024-10-02 13:43:00 18.00 /min Adria F Des BP Systolic 2024-10-02 13:43:00 124 mm[Hg] Step hen F Des BP Diastolic 2024-10-02 13:43:00 86 mm[Hg] Toi phen F Des Weight Measured 2024-10-02 13:43:00 207.80 pounds Adria F Des Height Measured 2024-10-02 13:43:00 64.37 inches Adria F Des Body Temperature 2024-10-02 13:43:00 97.60 degrees Adria F Des BP Systolic 2024-09-08 15:41:00 140 mm[Hg] Step hen F Des BP Diastolic 2024-09-08 15:41:00 74 mm[Hg] Toi phen F Des Weight Measured 2024-09-08 15:41:00 206.00 pounds Adria Nunes Height Measured 2024-09-08 15:41:00 64.37 inches Adria Nunes Body Temperature 2024-09-08 15:41:00 97.80 degrees Adria Nunes Heart Rate 2024-09-08 15:41:00 85.00 /min Corine Nunes Respiratory Rate 2024-09-08 15:41:00 16.00 /min Adria Nunes Procedures Procedure Date / Time Performed Performing Clinician Source XR KNEE 3 VW LEFT 2023-12-27 21:06:43 Gregoria Servin [facility] MR BRAIN W WO CONTRAST 2021-10-09 18:21:43 Lizy Caruso [facility] ASSIGNMENT OF BENEFITS 2021-10-09 16:24:12 Docto r Unassigned, [place] [facility] PATIENT QUESTIONNAIRE 2021-09-29 06:01:00 Doctor Unassigned, [place] [facility] Encounters Start Date/Time End Date/Time Encounter Type Admission Type Attending Clinicians Care Facility Care Department Encounter ID Source 2022-09-27 10:51:01 Outpatient Nova, [facility] [id number] [facility] 2022-09-26 08:10:01 Outpatient Nova, [facility] [id number] [facility] 2022-07-03 13:24:02 Outpatient Nova, [facility] [id number] [facility] 2021-12-25 15:43:02 Outpatient Nova, [facility] [id number] [facility] 2021-10-23 11:46:02 Outpatient Nova, [facility] [id number] [facility] 2021-10-21 07:35:00 Outpatient Nova, [facility] [id number] [facility] 2021-09-29 09:13:00 Outpatient NovaDerrek [facility] [id number] [facility] 2021-09-27 08:03:03 Outpatient NovaDerrek lipscomb [facility] [id number] [facility] 2021-09-20 14:26:11 [facility] [id number] [facility] 2024-10-19 15:08:00 2024-10-19 15:08:00 Outpatient [facility] [id number] Adria Nunes 2024-10-19 00:00:00 2024-10-19 00:00:00 Outpatient Visit [facility] [id number] Adria Nunes 2024-10-02 13:35:58 2024-10-02 13:35:58 Outpatient [facility] [id number] Adria Nunes 2024-10-02 00:00:00 2024-10-02 00:00:00 Outpatient Visit [facility] [id number] Adria Nunes 2024-09-08 00:00:00 2024-09-08 00:00:00 Outpatient Visit [facility] [id number] Adria Nunes 2023-12-27 15:40:53 2023-12-27 23:59:00 Hospital Encounter Gregoria Servin [facility] [id number] [id number] [facility] 2023-12-27 15:40:53 2023-12-27 23:59:00 Outpatient R GREGORIA SERVIN [facility] [id number] [facility] 2023-12-27 15:00:00 2023-12-27 15:20:00 Urgent Care Gregoria Servin Unknown, Attending [facility] [id number] [id number] [facility] 2023-12-27 00:00:00 2023-12-27 00:00:00 Telephone Gregoria Servin [facility] [id number] [facility] 2022-07-05 00:00:00 2022-07-05 00:00:00 OFFICE VISIT ESTAB PT LEVEL 4 STLMLC STL[facility] [id number] [facility] 2022-06-25 00:00:00 2022-06-25 00:00:00 OFFICE VISIT ESTAB PT LEVEL 4 [facility]LMLC STLML[facility] [id number] [facility] 2022-06-21 00:00:00 2022-06-21 00:00:00 (TEL) STLMLC STLMLC [id number] [facility] 2022-05-31 00:00:00 2022-05-31 00:00:00 (TEL) STLMLC STLML[facility] [id number] [facility] 2022-05-11 00:00:00 2022-05-11 00:00:00 OFFICE VISIT EST PT LEVEL 3 STLMLC STLMLC [id number] [facility] 2022-05-10 00:00:00 2022-05-10 00:00:00 (TEL) STLMLC STLMLC [id number] [facility] 2022-04-26 00:00:00 2022-04-26 00:00:00 OFFICE VISIT ESTAB PT LEVEL 4 [facility]LMLC STLMLC [id number] [facility] 2021 00:00:00 2021 00:00:00 Telephone Thais Caruso [facility] [id number] [id number] [facility] 2021-11-27 09:30:00 2021-11-27 09:30:00 Outpatient Darrel CARUSO [facility] [id number] [facility] 2021-11-13 00:00:00 2021-11-13 00:00:00 (TEL) STLMLC STLMLC [id number] [facility] 2021-11-07 00:00:00 2021-11-07 00:00:00 OFFICE VISIT EST PT LEVEL 3 STLMLC STLML[facility] [id number] [facility] 2021-10-24 00:00:00 2021-10-24 00:00:00 OFFICE VISIT ESTAB PT LEVEL 4 STLMLC STLMLC [id number] [facility] 2021-10-09 10:28:15 2021-10-09 23:59:00 Outpatient Darrel CARUSO [facility] [id number] [facility] 2021-10-09 10:28:15 2021-10-09 23:59:00 Hospital Encounter Cassandra Thais Mcgraw [facility] [id number] [id number] [id number] [id number] [facility] 2021-10-09 00:00:00 2021-10-09 00:00:00 Orders Only Doctor Unassigned, [place] [facility] [id number] [id number] [id number] [id number] [facility] 2021-10-06 00:00:00 2021-10-06 00:00:00 (TEL) STLMLC STLMLC [id number] [facility] 2021-10-03 00:00:00 2021-10-03 00:00:00 (TEL) STLMLC STLMLC [id number] [facility] 2021-10-03 00:00:00 2021-10-03 00:00:00 (INJ) Injection STLMLC STLMLC [id number] [facility] 2021-10-02 00:00:00 2021-10-02 00:00:00 PREV VISIT EST AGE 18-39 STLMLC STLMLC [id number] [facility] 2021-09-29 00:00:00 2021-09-29 00:00:00 Orders Only Doctor Unassigned, [place] [facility] [id number] [id number] [id number] [id number] [facility] 2021-09-28 12:30:00 2021-09-28 12:30:00 Outpatient R THAIS CARUSO [facility] [id number] [facility] 2021-09-28 12:30:00 2021-09-28 12:30:00 Office Visit Thais Caruso [facility] [id number] [id number] 4.2.7.2.686 [id number] [facility] 2021-09-28 12:30:00 2021-09-28 12:06:58 Outpatient R THAIS CARUSO [facility] [id number] [facility] 2021-09-27 00:00:00 2021-09-27 00:00:00 OFFICE VISIT NEW PT LEVEL 4 STLMLC STLMLC [id number] [facility] 2021-09-25 00:00:00 2021-09-25 00:00:00 (TEL) STLMLC STLMLC [id number] [facility] 2021-08-15 00:00:00 2021-08-15 00:00:00 (TEL) STLMLC STLMLC [id number] [facility] 2021-08-15 00:00:00 2021-08-15 00:00:00 (TEL) [facility] [id number] [facility] 2021-08-14 00:00:00 2021-08-14 00:00:00 (TEL) [facility] [id number] [facility] 2021-08-11 00:00:00 2021-08-11 00:00:00 OFF[facility] VISIT [facility] [id number] Results Test Description Test Time Test Comments [...] present along the anterior lateralknee joint line. [facility] Notes Date/Time Note Provider Source [facility]2025-02-07 00:00:00 [facility]2025-01-14 00:00:00 [facility]2024-05-03 18:00:38 Reviewed XRAY results with patient, [...] fracture. No acute fracture, erosion or dislocation. Shilo Mahajan MD., have reviewed this study and agree with the above report. [facility]
[2024-11-07] MEDS ORDERED: ALBUTEROL 2.5 MG/3 ML NEB SOL ONE (13:52)
[2024-11-07] MEDS ORDERED: HYDROCODONE/CHLORPHEN 5 ML/OSYR ONE (13:52)
[2024-11-07] MEDS ORDERED: IPRATROPIUM BROM 0.5MG/2.5ML ONE (13:53)
[2024-11-07] MEDS ORDERED: predniSONE 20 MG TAB ONE (13:53)
[2024-11-07 14:22] LABS: Influenza A Ag Negative; Influenza B Ag Negative; SARS-CoV-2 Antigen Rapid Res Negative (Negative)
--- NOTE | 2024-11-07 14:35 | RAD REPORT ---
EXAMINATION: ONE VIEW CHEST XR CLINICAL INDICATION: COUGH TECHNIQUE: Frontal chest projection is submitted. Examination is limited by patient positioning and t echnique. COMPARISON: No prior exam. FINDINGS: Nonspecific peribronchial thickening without focal consolidation could represent a viral or inflammat ory process. The heart is normal in size. No displaced fractures identified.
--- NOTE | 2024-11-07 14:50 | ER ---
Nurse's Notes [facility] Name: Yadira Dykes Age: 38 yrs Sex: Female : 1985 Arrival Date: 11/07/2024 Time: 13:34 Bed 7 Private MD: Diagnosis: Acute bronchitis, unspecified Presentation: 11/07 13:48 Chief complaint: Cough and SOB yesterday. Coronavirus screen: At this time, the client hb does not indicate any symptoms associated with coronavirus-19. Ebola Screen: No symptoms or risks identified at this time. Initial Sepsis Screen: Does the patient meet any 2 criteria? No. Patient's initial sepsis screen is negative. Does the patient have a suspected source of infection? No. Patient's initial sepsis screen is negative. Risk Assessment: Do you want to hurt yourself or someone else? Patient reports no desire to harm self or others. Onset of symptoms was November 06, 2024. 13:48 Method Of Arrival: Ambulatory hb 13:48 Acuity: CONNIE 3 hb Triage Assessment: 14:01 Respiratory: Reports shortness of breath cough that is non-productive, Onset: The le1 symptoms/episode began/occurred two days ago, the patient has mild shortness of breath. Historical: - Allergies: 13:43 Phenergan; hb - PMHx: 13:43 Migraine; hb - PSHx: 13:43 Adenoid excision; Left total knee; right ankle sx; Tonsillectomy; Total abdominal hb hysterectomy; - Immunization history:: Adult Immunizations up to date. - Infectious Disease History:: Denies. - Social history:: Smoking status: Patient denies any tobacco usage or history of. Screenin:00 [facility] ED Fall Risk Assessment (Adult) History of falling in the last 3 months, le1 including since admission No falls in past 3 months (0 pts) Confusion or Disorientation No (0 pts) Intoxicated or Sedated No (0 pts) Impaired Gait No (0 pts) Mobility Assist Device Used No (0 pt) Altered Elimination No (0 pt) Score/Fall Risk Level 0 - 2 = Low Risk Oriented to surroundings, Maintained a safe environment, Educated pt \T\ family on fall prevention, incl call for assistance when getting out of bed, Assessed \T\ reinforced patient's understanding of fall precautions, Hourly rounding (assess needs \T\ fall precautionary measures) done, Used ambulatory aids as needed (educated on \T\ assisted with). Abuse screen: Denies threats or abuse. Denies injuries from another. Nutritional screening: No deficits noted. Tuberculosis screening: No symptoms or risk factors identified. Assessment: 13:59 General: Appears distressed, uncomfortable, Behavior is cooperative, anxious. Pain: le1 Complains of pain in chest Pain currently is 4 out of 10 on a pain scale. Quality of pain is described as aching, Aggravated by coughing. Neuro: No deficits noted. Cardiovascular: Rhythm is sinus tachycardia. Respiratory: Airway is patent Trachea midline Respiratory effort is labored, using tripod position, Respiratory pattern is symmetrical, hyperventilation Breath sounds with wheezes bilaterally. GI: No deficits noted. : No deficits noted. EENT: No deficits noted. Musculoskeletal: No deficits noted. Vital Signs: 13:48 BP 154 / 102; Pulse 108; Resp 24; Temp 98.7(O); Pulse Ox 99% on R/A; Weight 93.89 kg; hb Height 5 ft. 5 in. ; Pain 5/10; 14:04 BP 159 / 91; Pulse 98; Resp 21; Pulse Ox 100% on R/A; Pain 4/10; le1 14:53 BP 159 / 91; Pulse 98; Resp 17; Temp 98.7(O); Pulse Ox 100% on R/A; Pain 0/10; le1 13:48 Body Mass Index 34.45 (93.89 kg, 165.1 cm) hb 13:48 Pain Scale: Adult hb 14:04 Pain Scale: Adult le1 14:53 Pain Scale: Adult le1 ED Course: 13:39 Patient arrived in ED. sj2 13:39 Luiza Jorgensen [facility]NP-C is [facility]. kb 13:39 Greg Wilks MD is Attending Physician. kb 13:44 Arm band placed on. hb 13:48 Triage completed. hb 13:49 Patient has correct armband on for positive identification. Bed in low position. Call hb light in reach. Provided Education on: tests, result times. Client placed on continuous cardiac and pulse oximetry monitoring. NIBP monitoring applied. bottom cager on. Pulse ox on. NIBP on. 13:50 Aquiles Funetes RN is Primary Nurse. le1 14:01 COVID swab sent to lab. Strep swab sent to lab. le1 14:15 Chest Single View XRAY In Process Unspecified. EDMS 15:00 No provider procedures requiring assistance completed. Patient did not have IV access le1 during this emergency room visit. Administered Medications: 13:58 Drug: Albuterol Inhalation 2.5 mg Inhalation once Route: Inhalation; le1 14:48 Follow up: Response: No adverse reaction; Marked relief of symptoms; Wheezing diminishedle1 13:58 Drug: Ipratropium Inhalation Aerosol 0.5 mg Inhalation once Route: Inhalation; le1 14:47 Follow up: Response: No adverse reaction; Marked relief of symptoms; Wheezing diminishedle1 13:58 Drug: Tussionex Pennkinetic ER PO Suspension 5 ml PO once Route: PO; le1 14:47 Follow up: Response: No adverse reaction; Marked relief of symptoms le1 13:58 Drug: predniSONE PO 40 mg PO once Route: PO; le1 14:47 Follow up: Response: No adverse reaction le1 Medication: 15:00 VIS not applicable for this client. le1 Outcome: 14:50 Discharge ordered by . biju 15:00 Discharged to home ambulatory, le1 15:00 Condition: good 15:00 Discharge instructions given to patient, Instructed on discharge instructions, follow up and referral plans. medication usage, Demonstrated understanding of instructions, follow-up care, medications, Prescriptions given X 2, 15:00 Patient left the ED. le1 Signatures: Dispatcher [employer] EDFL Luiza Jorgensen, Nayely Johnson RN RN hb English, LaKendric, RN RN le1 Richard Sow
--- NOTE | 2024-11-07 14:50 | EDPHYS ---
Physician Documentation [facility] Name: Yadira Dykes Age: 38 yrs Sex: Female : 1985 Arrival Date: 11/07/2024 Time: 13:34 Bed 7 Private MD: ED Physician Greg Wilks HPI: 11/07 15:01 This 38 yrs old Female presents to ER via Ambulatory with complaints of Painful Cough, kb Breathing Difficulty, Shortness Of Breath. 15:01 Pt is a 38 year old female who presents for cough, congestion and shortness of breath kb that started yesterday and got worse today. Denies fever. Denies sick contacts. States she has an inhaler, but it wasn't working. States she has cats and takes benadryl daily, but the cats and dust have caused these symptoms.. Historical: - Allergies: 13:43 Phenergan; hb - PMHx: 13:43 Migraine; hb - PSHx: 13:43 Adenoid excision; Left total knee; right ankle sx; Tonsillectomy; Total abdominal hb hysterectomy; - Immunization history:: Adult Immunizations up to date. - Infectious Disease History:: Denies. - Social history:: Smoking status: Patient denies any tobacco usage or history of. ROS: 14:59 Constitutional: As per HPI kb Exam: 14:59 Constitutional: This is a well developed, well nourished patient who is awake, alert, kb and in no acute distress. Head/Face: Normocephalic, atraumatic. ENT: Moist Mucous membranes Cardiovascular: Regular rate Abdomen/GI: Soft, non-tender. No distention Skin: Warm, dry with normal turgor. Normal color. MS/ Extremity: Pulses equal, no cyanosis. Neurovascular intact. Full, normal range of motion. Neuro: Awake and alert, GCS 15, oriented to person, place, time, and situation. 14:59 Respiratory: the patient does not display signs of respiratory distress, Respirations: labored breathing, that is mild, Breath sounds: wheezing: expiratory that is mild, is scattered, Vital Signs: 13:48 BP 154 / 102; Pulse 108; Resp 24; Temp 98.7(O); Pulse Ox 99% on R/A; Weight 93.89 kg; hb Height 5 ft. 5 in. ; Pain 5/10; 14:04 BP 159 / 91; Pulse 98; Resp 21; Pulse Ox 100% on R/A; Pain 4/10; le1 14:53 BP 159 / 91; Pulse 98; Resp 17; Temp 98.7(O); Pulse Ox 100% on R/A; Pain 0/10; le1 13:48 Body Mass Index 34.45 (93.89 kg, 165.1 cm) hb 13:48 Pain Scale: Adult hb 14:04 Pain Scale: Adult le1 14:53 Pain Scale: Adult le1 MDM: 13:39 Medical Screening Exam initiated kb 15:00 Differential diagnosis: asthma, Bronchitis pneumonia, pulmonary edema. Antibiotic kb administration: Not indicated. Data reviewed: vital signs, nurses notes. I considered the following discharge prescriptions or medication management in the emergency department I discussed and recommended Over The Counter medications, Antibiotics: At this time antibiotics are not recommended, Antivirals: At this time, antivirals are not recommended. Counseling: I had a detailed discussion with the patient and/or guardian regarding the historical points, exam findings, and any diagnostic results supporting the discharge/admit diagnosis, lab results, radiology results, the need for outpatient follow up, a family practitioner, to return to the emergency department if symptoms worsen or persist or if there are any questions or concerns that arise at home. 11/07 13:47 Order name: COVID-19 Ag + Flu A+B Ag; Complete Time: 14:22 kb 11/07 13:47 Order name: Group A Streptococcus Rapid; Complete Time: 14:19 kb 11/07 14:19 Order name: Throat Culture EDMS 11/07 13:47 Order name: Chest Single View XRAY; Complete Time: 14:40 kb Administered Medications: 13:58 Drug: Albuterol Inhalation 2.5 mg Inhalation once Route: Inhalation; le1 14:48 Follow up: Response: No adverse reaction; Marked relief of symptoms; Wheezing diminishedle1 13:58 Drug: Ipratropium Inhalation Aerosol 0.5 mg Inhalation once Route: Inhalation; le1 14:47 Follow up: Response: No adverse reaction; Marked relief of symptoms; Wheezing diminishedle1 13:58 Drug: Tussionex Pennkinetic ER PO Suspension 5 ml PO once Route: PO; le1 14:47 Follow up: Response: No adverse reaction; Marked relief of symptoms le1 13:58 Drug: predniSONE PO 40 mg PO once Route: PO; le1 14:47 Follow up: Response: No adverse reaction le1 Disposition: 16:16 Co-signature as Attending Physician, Greg Wilks MD I reviewed the patient's care rt provided by the Advanced Practice Provider and agree with the diagnosis and treatment plan. Disposition Summary: 11/07/24 14:50 Discharge Ordered Notes: Location: Home kb Condition: Stable kb Diagnosis - Acute bronchitis, unspecified kb Followup: kb - With: Private Physician - When: 2 - 3 days - Reason: Recheck today's complaints, Continuance of care, Re-evaluation by your physician Followup: kb - With: Emergency Department - When: As needed - Reason: Worsening of condition Discharge Instructions: - Discharge Summary Sheet kb - Acute Bronchitis, Adult, [id number] kb Forms: - Medication Reconciliation Form kb - Antibiotic Education kb - Prescription Opioid Use kb - Patient Portal Instructions kb - Leadership Thank You Letter kb Prescriptions: - Prednisone 20 mg Oral Tablet - take 1 tablet ORAL route once daily for 5 days; 5 tablet; Refills: 0, Product kb Selection Permitted - Tessalon Perles 100 mg Oral Capsule - take 1 capsule ORAL route every 8 hours As needed; 15 capsule; Refills: 0, kb Product Selection Permitted Signatures: Dispatcher [employer] Luiza Salinas, PACKING MACHINE INSPECTOR-C PACKING MACHINE INSPECTOR-Nayely Anne, RN Greg Cortes MD MD rt Aquiles Fuentes RN RN le1
[2024-11-07 15:07] VITALS: TEMP 98.7
[2024-11-07 15:08] VITALS: BP 159/91; O2SAT 100
== END 2024-11-07 15:00 | disposition home or self-care (01) ==
LOC: ER 13:34
DX: J20.9 Acute bronchitis, unspecified (principal); Z11.52 Encounter for screening for COVID-19
CPT/HCPCS: 87070; 36415; 71045; 99285; 87428; J7512; J7613; J7644